=== PATIENT | female | born 1940 | race Caucasian/White ===

== ENCOUNTER 2019-05-16 18:49 | Emergency (ER) | payer MEDICARE, OTHER, SELFPAY ==
[2019-05-16 18:50] VITALS: BP 161/110; PULSE 64; RESP 18; TEMP 37.1; O2SAT 98; BMI 51.3
--- NOTE | 2019-05-16 19:19 | EKG12_ITS ---
Test Reason : DYSRHYTHMIA Blood Pressure : / mmHG Vent. Rate : 055 BPM Atrial Rate : 055 BPM P-R Int : 218 ms QRS Dur : 092 ms QT Int : 440 ms P-R-T Axes : 062 034 091 degrees QTc Int : 420 ms Sinus bradycardia with 1st degree A-V block with Premature atrial complexes Otherwise normal ECG Confirmed by RAYSA BAUGH, DENI ([id number]), editorial assistant LAURA KING ([id number]) on 05/18/2019 1:52:26 PM Referred By: ANNE Confirmed By:DENI TABARES MD
--- NOTE | 2019-05-16 19:20 | CT_ITS ---
STUDY: CT ABDOMEN AND PELVIS WITH CONTRAST REASON FOR EXAM: Female, 78 years old. EPIGASTRIC PAIN, NEW HERNIA. H/O THYROID CANCER. RADIATION DOSAGE (If Supplied By Facility): CTDIvol = ( 18.74 ) mGy, DLP = ( 1272.14 ) mGycm TECHNIQUE: Transaxial images were obtained from the dome of the diaphragm to the symphysis pubis without oral contrast. Oral and amp; IV Gastrografin and amp; 100mL Isovue-300 was administered. Sagittal and coronal images were reconstructed. Individualized dose optimization techniques were used for this CT. COMPARISON: December 22, 2013 CT scan abdomen and pelvis FINDINGS: The visualized lung bases are unremarkable. There is moderate cardiomegaly. Liver is fatty mildly infiltrated. There is non-visualization of the gallbladder, which may be secondary to either contraction or a prior cholecystectomy. Normal spleen. Normal pancreas. There is a mildly thickened appearance of the adrenal glands greater than prior study which may represent hyperplasia. There is mild renal cortical thinning. There is a stable right renal cyst measuring 2.2 x 2.2 cm. There is no evidence of hydronephrosis. Normal left kidney. Normal visualized stomach. There are contrasted loops of bowel that are herniated into a large abdominal wall hernia. There is a stool-filled colon from the cecum to the rectum. There is diverticulosis without diverticulitis. The transverse colon has herniated into the large abdominal wall hernia as well. There is tortuosity. There are mildly distended loops of small bowel within the herniation. There is non-visualization of the appendix. Aorta is partially calcified. Normal inferior vena cava. Normal retroperitoneum. Normal urinary bladder. There is absence of the uterus consistent with a prior hysterectomy. On prior study there was a large abdominal wall hernia approximately at the level of the umbilicus. This only contained fat at that time. Its opening was 5.6 cm and the fat content was approximately 5.6 x 12.8 x 9.7 cm. On today''s study there is much greater herniation. The opening measures approximately 6.5 cm. But now this large hernia contains loops of contrast-filled small bowel with mild distention and stool filled large bowel. This measures 18.2 x 11.3 x 20.2 cm. There are small bowel loops that are just under the skin to what appears to be to the left of the anatomic umbilicus. There is multilevel degenerative change of the lumbar spine with multilevel disc space narrowing vacuum phenomenon multilevel neural foraminal narrowing and [id number] central stenosis. CT/Abdomen/Pelvis WITH Contrast IMPRESSION: Since prior study the moderate sized fatty umbilical hernia is now enlarged to a greater degree now containing fat, stool-filled large bowel and mildly distended contrasted small bowel now measuring up to 18.2 x 11.3 x 20.2 cm. Radiographically findings are suggestive of mild focal ileus of the small bowel. Contrast is extending into the distal small bowel at the time at this time. Stable right renal cyst. Interval mild thickening of the adrenal glands could consider adrenal hyperplasia Diverticulosis no evidence of diverticulitis. Status post hysterectomy. Moderate cardiomegaly. Electronically Signed: Janet Newsome MD at 21:41 EST Tel , Service support ,
[2019-05-16 19:41] LABS: Absolute Lymphocyte Count 1.95 X10^3/uL (0.83-4.51); Basophil# 0.03 X10^3/uL; Basophil% 0.4 % (0-1); Eosinophil# 0.11 X10^3/uL; Eosinophils% 1.6 % (0-5); Hematocrit 42.2 % (37-47); Hemoglobin 13.2 g/dL (12.0-15.0); Lymphocyte # 1.95 X10^3/ul (4.0); Lymphocyte % 29.1 % (19-41); Mean Corp Hgb Conc 31.3 g/dL (32-36); Mean Corpuscular Hgb 30.2 pg (27.0-32.0); Mean Corpuscular Volume 96.6 fL (81-99); Mean Platelet Vol. 9.6 fl (6.2-12.0); Monocyte# 0.56 X10^3/uL; Monocyte% 8.3 % (0-10); NRBC Flagged by Analyzer 0 % (0-5); Neutrophil # 4.01 X10^3/uL (2.7-7.7); Neutrophil % 59.9 % (47-70); Platelet Count 256 K/mm3 (150-450); RBC Distribution Width CV 13.5 % (11.6-14.6); RBC Distribution Width SD 48.1 fl (35.1-43.9); Red Blood Count 4.37 M/mm3 (4.2-5.4); White Blood Count 6.7 K/mm3 (4.4-11.0)
[2019-05-16 20:33] LABS: ALB/GLOB Ratio 0.8 RATIO (0.9-2.4); AST(SGOT) 24 U/L (15-37); Alanine Aminotransfer ALT/SGPT 22 U/L (13-56); Albumin, Serum 3.5 g/dL (3.2-5.0); Alkaline Phosphatase 89 U/L (45-117); Anion Gap 6 (5-15); BUN 29 mg/dL (7-18); BUN/Creat Ratio 22.3 RATIO (10-20); Calcium,Total 8.6 mg/dL (8.5-10.1); Chloride 107 mmol/L (98-107); EST Glomerular Filtration Rate 42 mL/min (>60); Est Glom Filt Rate - Afr Amer 51 mL/min (>60); Estimated Creatinine Clearance 32.31 ml/min; Globulin 4.4 g/dL (2.2-4.2); Glucose 86 mg/dL (74-106); Potassium 4.7 mmol/L (3.5-5.1); Protein, Total 7.9 g/dL (6.4-8.2); Sodium Level 139 mmol/L (136-145)
--- NOTE | 2019-05-16 21:05 | RAD_ITS ---
STUDY: X-RAY CHEST REASON FOR EXAM: Female, 78 years old. Shortness of breath TECHNIQUE: PA and lateral views of the chest. COMPARISON: 09/20/2014 chest x-ray FINDINGS: Position markings are mildly prominent. The lungs are similar to prior study. There is no demonstrated pleural abnormality. There is mild cardiac enlargement. Normal mediastinum and mirian. Normal visualized pulmonary arteries. Normal visualized aortic arch and descending thoracic aorta. There are diffuse degenerative changes of the visualized thoracic spine. Normal visualized ribs, clavicles, and shoulders. There is no demonstrated abnormality of the visualized soft tissue structures of the upper abdomen. RAD/Chest PA and Lateral IMPRESSION: Degenerative changes, as described above. No demonstrated acute cardiopulmonary process. Electronically Signed: Janet Newsome MD at 21:25 EST Tel , Service support ,
[2019-05-16 22:14] LABS: Bacteria 0 SEEN /hpf (None Seen); Mucous, Urine 0 SEEN /hpf (<or=2+); Red Blood Cells-Urine 0 SEEN /hpf (0-5); White Blood Cells 0 SEEN /hpf (0-5)
--- NOTE | 2019-05-16 22:23 | ED.RN ---
pt back in [place] with first degree.
[2019-05-16 22:24] VITALS: BP 183/83; PULSE 57; RESP 18
[2019-05-16 22:25] LABS: Color, Urine Yellow (Yellow); Glucose, Dipstick Normal (Normal); Ketone-Dipstick Negative (Negative); Leukocyte Esterase-Dipstick Negative /ul (Negative); Nitrite-Dipstick Negative (Negative); Occult Blood-Urine Negative /ul (Negative); Protein-Dipstick Negative (Negative); Urine Bilirubin Dipstick Negative (Negative); Urine Clarity Clear (Clear); Urine Urobilinogen Normal (Normal)
[2019-05-16 22:31] LABS: Squamous Epithelial Cells - UA 0-5 SEEN /hpf (5-10)
--- NOTE | 2019-05-16 22:36 | CM.ED ---
Social Work Completed palliative care screening tool. Patient meeting criteria. Meeting with patient and patient family in room. Broached topic of palliative care, patient voicing understanding to this but did become upset when patient saw the words hospice on brochure for palliative care, patient stating I reject that. This case management social worker attempting to educate patient further on the difference between hospice and palliative care, patient declining to listen to this case management social worker any further. Patient family stating to believe patient would benefit from palliative care services. Patient family keeping brochure. Updated medical team. Macho Sewell MSW, JAYNA
--- NOTE | 2019-05-16 22:55 | ED.DCSUM_ITS ---
- ER Visit Summary Date of Service: 05/16/19 Chief Complaint: Shortness of breath History of Present Illness: The patient is a 78 F who presents with shortness of breath that has been getting worse since yesterday. Patient states her breathing is worse with exertion and with laying flat. Patient states she also has pain in her lower abdomen there is worse with movement. Patient denies any chest pain. Patient denies any fevers or chills. Patient denies any sore throat or rhinorrhea. Patient denies any cough. Patient describes her lower abdominal pain as aching. Patient has a history of thyroid cancer and has had a thyroidectomy. Patient has been noncompliant with her medications. Physical Examination: Vital signs are stable except for an elevated blood pressure of 161/110. Patient is afebrile. Patient is in no acute distress. Oral mucosa is pink and moist. Neck is supple. Trachea is midline. There is no JVD. Heart was regular rate and rhythm. Lungs are somewhat diminished bilaterally. There is good respiratory effort noted. Abdomen is soft. Bowel sounds are normal. There is mild lower abdominal tenderness. There is no rebound or guarding noted. Cranial nerves II through XII are intact. There are no focal motor or sensory deficits noted. Extremities are intact. There is 2+ edema of the lower extremities bilaterally. Test Results: PA and lateral chest x-ray was obtained. There is no acute cardiopulmonary process. CT scan of the abdomen and pelvis was obtained. There is an umbilical hernia but there is no obstruction. There is a mild focal ileus of the small bowel. There is no evidence of obstruction. CBC was normal. Comprehensive metabolic profile was essentially within normal limits. Urinalysis does not show any evidence of urinary tract infection. TSH was elevated at 130. Emergency Department Course and Treatment: Patient was feeling better on reevaluation. Patient's blood pressure increased to 210 systolic. Patient was given a dose of labetalol here. Patient was given a prescription for her Synthroid. Patient was instructed to follow-up with her primary care physician in 3 to 5 days. Patient states she wants to follow-up with Dr. Ramirez. Patient was given his information as well. Patient and family understood and were agreeable with the plan. All questions were answered. Disposition: Discharge home Impression: 1. Hypothyroidism 2. Hypertension 3. Dyspnea 4. Abdominal pain This note was generated with iFrat Warsation software. It may contain incorrect words, spelling, and punctuation that were not noted in review of the chart prior to signing ED Disposition - Plan for ED Patient: Disposition: Home or Assisted Living Diagnosis: Hypothyroidism, Hypertension, Dyspnea, Abdominal pain, Umbilical hernia, Hypothyroidism associated with surgical procedure, Morbid obesity Instructions: HYPERTENSION, Established, Hypothyroidism Prescriptions: Metoprolol Tartrate [Lopressor] 50 mg PO DAILY #30 tab Prescription Printed Levothyroxine Sodium [Synthroid] 112 mcg PO DAILY #30 tab Prescription Printed Referrals: Flores Boles DO [Primary Care Provider] - 3-5 Days Tico Ramirez DO [NON-STAFF] - 3-5 Days
[2019-05-16] MEDS: cloNIDine HCl 0.2 MG Tablet PO (23:42)
[2019-05-16 23:47] VITALS: BP 198/72; PULSE 85; RESP 18; O2SAT 96
--- NOTE | 2019-05-16 23:48 | ED.RN ---
WHEN PT REFUSED TO TAKE THE CLONIDINE PILL HERE AND STATED SHE WOULD TAKE IT AT HOME. ADVISED PT THAT SHE IS A RISK FOR STROKE AND HEART ATTACK BECAUSE HER BP IS TOO HIGH. PT STATED SHE HAS A BP MACHINE AT HOME AND SHE WILL TAKE IT FIRST AND THEN TAKE THE PILL.DAUGHTER AT THE BEDSIDE AND ATTEMPTED TO TALK HER IN TO TAKING PILL NOW. AWARE. PT ALSO REFUSED WHEEL CHAIR.
== END 2019-05-16 23:54 | disposition home or self-care (01) ==
PROVIDERS: Emergency Provider Emergency Medicine; PCP Internal Medicine
DX: R06.09 Other forms of dyspnea (principal); R10.30 Lower abdominal pain, unspecified; E03.9 Hypothyroidism, unspecified; I10 Essential (primary) hypertension; K42.9 Umbilical hernia without obstruction or gangrene; Z85.850 Personal history of malignant neoplasm of thyroid; Z91.14 Patient's other noncompliance with medication regimen
CPT/HCPCS: 71046; 74177; 80053; 81001; 84443; 84484; 85025; 93005; 99285; Q9967; A4216

== ENCOUNTER 2022-05-14 15:38 | Inpatient (IN) | payer MEDICARE, OTHER, SELFPAY ==
[2022-05-14] VITALS (15 sets, daily range): BP systolic 124–181; BP diastolic 86–153; PULSE 86–129; RESP 12–31; TEMP 36.5–37.3; O2SAT 97–99; BMI 50.8; BMI 45.9
--- NOTE | 2022-05-14 15:58 | EKG12_ITS ---
Test Reason : AFIB Blood Pressure : / mmHG Vent. Rate : 105 BPM Atrial Rate : 000 BPM P-R Int : 000 ms QRS Dur : 088 ms QT Int : 356 ms P-R-T Axes : 000 026 099 degrees QTc Int : 470 ms Atrial fibrillation with rapid ventricular response Nonspecific T wave abnormality Abnormal ECG Confirmed by RAYSA BAUGH, DENI ([id number]), video tape editor LAURA KING ([id number]) on 05/16/2022 12:37:56 PM Referred By: Confirmed By:DENI TABARES MD
--- NOTE | 2022-05-14 16:00 | VDLE_ITS ---
Reason For Study: Swelling RIGHT LEFT GSV is normal. GSV is normal. CFV is compressible, spontaneous, phasic, CFV is compressible, spontaneous, phasic, competent and demonstrates normal competent, and demonstrates normal augmentation. augmentation. FV is compressible, spontaneous, phasic, FV is compressible, spontaneous, phasic, competent and demonstrates normal competent and demonstrates normal augmentation. augmentation. FV mid-distal visualized with color only, FV mid-distal visualized with color only, appear patent. Patient unbale to tolerate appear patent. Patient unbale to tolerate comperssion. comperssion. POP V is compressible, spontaneous, phasic, POP V is compressible, spontaneous, phasic, competent and demonstrates normal competent and demonstrates normal augmentation. augmentation. T/P Trunk is compressible. T/P Trunk is compressible. PTV is compressible. PTV is compressible. RT PerV is compressible. LT PerV is compressible. Procedure This is a venous duplex using B-mode, color flow and spectral Doppler. Exam performed portable in ED. Technically difficult study due to pt body habitus and inability to tolerate compressions. A preliminary report was called and/or faxed to ED RN. VL/Venous Duplex US - Hnuter Extrem Interpretation Summary No evidence for acute deep venous thrombosis bilateral lower extremities with p atent and compressible bilateral great saphenous veins. Technically difficult examination with patient inability to tolerate compression at the femoral vein and difficulty with imagi ng secondary to body habitus. Ordering Physician: Zay Hooks Referring Physician: Flores Boles M.D. Performed By: Chayito Glover RVT
--- NOTE | 2022-05-14 16:03 | ED.VIS.LOWEX ---
HPI History of Present Illness Chief Complaint: Edema Informant: patient Narrative Narrative: This patient comes in complaining that both of her legs are swollen. She thinks they have gotten red just over the last day. But they have been swollen for a couple months. She states her legs always had a little bit of swelling but not nearly what they have now. She put on a pair of boots that she is worn many times before. She did this 2 months ago for 1 day. She states ever since then her legs have been more swollen. Sometimes they hurt a bit but pain is not the biggest issue. She denies fevers chills nausea or vomiting. Patient also states that she has not seen a physician in over 3 years. She used to be on 19 different medicines. We know that some of those were for blood pressure and thyroid disease. She was never on anticoagulation. She denies diabetes. But she does not know what all her illnesses were nor her medications. She states she saw another hospital a few weeks ago but she does not remember what that was for. Patient also states that she has been getting weaker and weaker. She states she used to walk without any assistance. Then she started using a cane intermittently then continuously. Then she switched to a walker. She now feels she needs a walker with wheels or help. She states she can get enough energy to go into the kitchen but she normally does not have the energy to make any food when she gets there. Her daughter brought her in because her mother is just no longer really functional at home and she realizes that she needs help and finally convinced her mother to get help. We do notice that she appears to be in atrial fibrillation on the monitor. She states she thinks she has been in this before but denies anticoagulation, cardioversion, stents or bypass surgery. She did have a heart catheterization years ago but no treatment came from that. [facility] Medical History Atrial fibrillation Hypertension Hypothyroidism Home Medications NK 05/14/22 [History Last Taken Unknown] Allergy/AdvReac Type Severity Reaction Status Date / Time celecoxib [From Celebrex] AdvReac Other Verified 05/14/22 15:45 morphine AdvReac Vomiting Verified 05/14/22 15:45 Social History Smoking Status: Former smoker ROS ROS ED Constitutional Constitutional ED: Denies chills or fever(s) Eyes Eyes: Denies change in vision ENT ENT ED: Denies rhinorrhea or sore throat Cardiovascular Cardiovascular: Reports racing heartbeat; Denies chest pain Respiratory/Chest Respiratory/Chest: Denies cough or dyspnea Gastrointestinal Gastrointestinal: Denies abdominal pain, diarrhea, nausea or vomiting Genitourinary Genitourinary ED: Denies dysuria Musculoskeletal Musculoskeletal: Reports other Details: Swelling of bilateral lower extremities. ; Denies myalgias Integumentary Reports rash and other Details: Bilateral lower extremities see history of present illness. Neurologic Neurologic: Reports weakness and other Details: Generalized but no focal weakness Endocrine Endocrinology: Denies polydipsia or polyuria Hematologic/Lymphatic Hematologic/Lymphatic: Denies easy bleeding or easy bruising Allergic/Immunologic Allergic/Immunologic ED: Denies urticaria EXAM Physical Exam Narrative Exam Narrative: That Ai is sitting calmly and quietly in bed. She is in no acute distress. She is nontoxic. HEENT: Mucous membranes are reasonably moist. No facial trauma. Neck shows no JVD. Lungs are actually clear. Breaths. Heart is irregular and tachycardic at about 115. Appears to be atrial fibrillation on the monitor. Abdomen is obese but nontender. She does have some lower her midline hernias and umbilical area hernias but these are evidently chronic. They are not tender and they easily reduce. Extremities do show signs of prior bilateral total knee replacements. She also has a fair amount of edema both lower extremities in the lower third of both of her legs do have some erythema warmth and some skin breakdown. No weeping but there is a start of a bit of an odor. Skin shows erythema of the legs as above. No other generalized rash. Neurologic: No focal deficit. She is not the best informant for details of her history but does not appear to be confused. Const Vital Signs: 05/14/22 15:39 05/14/22 15:51 05/14/22 16:00 Temperature 99.1 F 99.1 F Temperature Source Oral Oral Pulse Rate 122 H 129 H 109 H Respiratory Rate 18 31 H Blood Pressure 157/98 H 164/88 H Blood Pressure Mean 117 106 Pulse Ox 98 98 Oxygen Delivery Method Room Air 05/14/22 17:24 05/14/22 18:16 02/22/23 18:31 Temperature 98.1 F 98.1 F Temperature Source Oral Oral Pulse Rate 123 H 117 H 122 H Respiratory Rate 22 H 28 H 24 H Blood Pressure 181/153 H 148/109 H 151/116 H Blood Pressure Mean 163 122 124 Pulse Ox 98 98 98 Oxygen Delivery Method Room Air MDM MDM MDM Narrative Medical decision making narrative: My independent interpretation the patient's single view chest x-ray showed what looked like borderline cardiomegaly on AP film. No infiltrate. Final reading showed no acute issue. Blood work showed mild anemia but white count was normal. Electrolytes showed mild elevation in creatinine 1.3 but it has been to that area when looking at prior labs. Lactic acid was normal. Liver function tests were normal. TSH was high but it was higher on the last check. BNP was just slightly elevated at 186. Urine did not show significant signs of infection. There were a few white cells. I will send this for culture. Patient has multiple issues going on. She has atrial fibrillation with a rapid ventricular rate. She will go down as low as 105. I am going to give her a small dose of metoprolol. I do not know when she had started going into atrial fibrillation. It could have been anywhere in the last few years. She also has signs of edema pain and now erythema in the legs consistent with cellulitis. We will treat her with antibiotics. We attempted to get the patient up and walk. She was far too weak to do this. After extensive discussion with her she does admit to coming in the hospital. She also admits that she may need to go to a senior care for a while. I have hospitalist on page regarding admission. I would discussed the case directly with hospitalist including blood work x-rays and history. Lab Data Attestation: I reviewed the patient's lab results. Labs: Laboratory Results - last 24 hr 05/14/22 05/14/22 05/14/22 16:06 16:06 16:06 WBC 7.6 RBC 4.13 L Hgb 11.5 L Hct 38.2 MCV 92.5 MCH 27.8 MCHC 30.1 L RDW Std Deviation 50.3 H RDW Coeff of Leslie 14.6 Plt Count 340 MPV 9.2 Immature Gran % (Auto) 1.300 H Neut % (Auto) 71.1 H Lymph % (Auto) 14.6 L Hutchinson % (Auto) 11.5 H Eos % (Auto) 1.1 Baso % (Auto) 0.4 Absolute Neuts (auto) 5.4 Absolute Lymphs (auto) 1.11 Nucleated RBC % 0 Sodium 139 Potassium 4.6 Chloride 105 Carbon Dioxide 29.0 Anion Gap 5 BUN 30 H Creatinine 1.30 H Estim Creat Clear Calc 30.70 Est GFR (MDRD) Af Amer 50 L Est GFR (MDRD) Non-Af 42 L BUN/Creatinine Ratio 23.1 H Glucose 105 Lactic Acid 0.8 Calcium 8.9 Magnesium 2.2 Total Bilirubin 0.60 AST 18 ALT 25 Alkaline Phosphatase 87 Troponin I High Sens 21 B-Natriuretic Peptide Total Protein 7.0 Albumin 3.1 L Globulin 3.9 Albumin/Globulin Ratio 0.8 L TSH 47.90 H Urine Color Urine Clarity Urine pH Ur Specific [place] Urine Protein Urine Glucose (UA) Urine Ketones Urine Occult Blood Urine Nitrite Urine Bilirubin Urine Urobilinogen Ur Leukocyte Esterase Urine RBC Urine WBC Ur Squamous Epith Cells Urine Bacteria Urine Mucus 05/14/22 05/14/22 16:06 17:27 WBC RBC Hgb Hct MCV MCH MCHC RDW Std Deviation RDW Coeff of Leslie Plt Count MPV Immature Gran % (Auto) Neut % (Auto) Lymph % (Auto) [place] % (Auto) Eos % (Auto) Baso % (Auto) Absolute Neuts (auto) Absolute Lymphs (auto) Nucleated RBC % Sodium Potassium Chloride Carbon Dioxide Anion Gap BUN Creatinine Estim Creat Clear Calc Est GFR (MDRD) Af Amer Est GFR (MDRD) Non-Af BUN/Creatinine Ratio Glucose Lactic Acid Calcium Magnesium Total Bilirubin AST ALT Alkaline Phosphatase Troponin I High Sens B-Natriuretic Peptide 186.8 H Total Protein Albumin Globulin Albumin/Globulin Ratio TSH Urine Color Yellow Urine Clarity Sl. Cloudy Urine pH 6.0 Ur Specific [place] 1.010 Urine Protein 30 H Urine Glucose (UA) Normal Urine Ketones Negative Urine Occult Blood 25 H Urine Nitrite Negative Urine Bilirubin Negative Urine Urobilinogen Normal Ur Leukocyte Esterase 100 H Urine RBC 0-5 SEEN Urine WBC 5-10 SEEN Ur Squamous Epith Cells 0-5 SEEN Urine Bacteria 1+ Urine Mucus 0 SEEN Radiography Diagnostic Testing: Clinical Impression(s) from Imaging Studies Venous Doppler Study 05/14/22 16:00 Interpretation Summary No evidence for acute deep venous thrombosis bilateral lower extremities with patent and compressible bilateral great saphenous veins. Technically difficult examination with patient inability to tolerate compression at the femoral vein and difficulty with imaging secondary to body habitus. Ordering Physician: Zay Hooks Referring Physician: Flores Boles M.D. Performed By: Chayito Glover RVT Chest X-Ray 05/14/22 16:20 IMPRESSION: COPD and ASHD. No acute cardiopulmonary pathology. Electronically Signed: Suresh Carl MD at 16:37 EST Reading Location ID and State: [address] [place] [address] , Service support , EKG Initial EKG: Comments: My independent interpretation of the patient's EKG done for tachycardia and atrial fibrillation does show atrial fibrillation with rapid overall rate at 105. There is no ventricular ectopy on the EKG although I have seen some on the monitor. No acute ST elevation or depression. QRS duration is normal. QTc is a little long at 470 ms. Discharge Plan Triage Chief Complaint: Edema ED Provider: Zay Hooks Dx/Rx/DC Orders Clinical Impression: Cellulitis of lower extremity, Atrial fibrillation with RVR, Hypothyroid, Creatinine elevation Prescriptions: No Action NK Primary Care Provider: Flores Boles Referrals: Flores Boles DO [Primary Care Provider] - Disposition Disposition: Acute Care Hospital [facility]
--- NOTE | 2022-05-14 16:20 | RAD_ITS ---
STUDY: X-RAY CHEST REASON FOR EXAM: Female, 81 years old. Cardiomegaly TECHNIQUE: AP portable COMPARISON: May 16, 2019 FINDINGS: Lungs are hyperinflated but clear.. There is no demonstrated pleural abnormality. Heart is enlarged.. Normal mediastinum and mirian. Normal visualized pulmonary arteries. Mildly calcified aortic arch and descending thoracic aorta. Dorsal spine and shoulders demonstrate degenerative change. Normal visualized ribs, and clavicles.. There is no demonstrated abnormality of the visualized soft tissue structures of the upper abdomen. RAD/Chest 1 View (Portable) IMPRESSION: COPD and ASHD. No acute cardiopulmonary pathology. Electronically Signed: Suresh Carl MD at 16:37 EST ,
[2022-05-14 16:39] LABS: Absolute Lymphocyte Count 1.11 X10^3/uL (0.83-4.51); Absolute Neutrophil Count 5.4 X10^3/uL (2.0-7.7); Basophil# 0.03 X10^3/uL; Basophil% 0.4 % (0-1); Eosinophil# 0.08 X10^3/uL; Eosinophils% 1.1 % (0-5); Hematocrit 38.2 % (37-47); Hemoglobin 11.5 g/dL (12.0-15.0); Lymphocyte # 1.11 X10^3/ul (0.83-4.51); Lymphocyte % 14.6 % (19-41); Mean Corp Hgb Conc 30.1 g/dL (32-36); Mean Corpuscular Hgb 27.8 pg (27.0-32.0); Mean Corpuscular Volume 92.5 fL (81-99); Mean Platelet Vol. 9.2 fl (6.2-12.0); Monocyte# 0.87 X10^3/uL; Monocyte% 11.5 % (0-10); NRBC Flagged by Analyzer 0 % (0-5); Neutrophil % 71.1 % (47-70); Platelet Count 340 K/mm3 (150-450); RBC Distribution Width CV 14.6 % (11.6-14.6); RBC Distribution Width SD 50.3 fl (35.1-43.9); Red Blood Count 4.13 M/mm3 (4.2-5.4); White Blood Count 7.6 K/mm3 (4.4-11.0)
[2022-05-14 16:58] LABS: Lactic Acid 0.8 mmol/L (0.4-1.9)
[2022-05-14 17:04] LABS: ALB/GLOB Ratio 0.8 RATIO (0.9-2.4); AST(SGOT) 18 U/L (15-37); Alanine Aminotransfer ALT/SGPT 25 U/L (13-56); Albumin, Serum 3.1 g/dL (3.2-5.0); Alkaline Phosphatase 87 U/L (45-117); Anion Gap 5 (5-15); BUN 30 mg/dL (7-18); BUN/Creat Ratio 23.1 RATIO (10-20); Calcium,Total 8.9 mg/dL (8.5-10.1); Chloride 105 mmol/L (98-107); EST Glomerular Filtration Rate 42 mL/min (>60); Est Glom Filt Rate - Afr Amer 50 mL/min (>60); Globulin 3.9 g/dL (2.2-4.2); Glucose 105 mg/dL (74-106); Magnesium 2.2 mg/dL (1.6-2.6); Potassium 4.6 mmol/L (3.5-5.1); Sodium Level 139 mmol/L (136-145); Troponin-I HS 21 pg/mL (3.0-54.0)
[2022-05-14 17:33] LABS: BNP,B-Type NATRIURETIC PEPTIDE 186.8 pg/mL (0-100)
[2022-05-14 17:34] LABS: Mucous, Urine 0 SEEN /hpf (<or=2+)
[2022-05-14 17:55] LABS: Color, Urine Yellow (Yellow); Glucose, Dipstick Normal (Normal); Ketone-Dipstick Negative (Negative); Leukocyte Esterase-Dipstick 100 /ul (Negative); Nitrite-Dipstick Negative (Negative); Occult Blood-Urine 25 /ul (Negative); Protein-Dipstick 30 mg/dl (Negative); Urine Bilirubin Dipstick Negative (Negative); Urine Clarity Sl. Cloudy (Clear); Urine Urobilinogen Normal (Normal)
[2022-05-14 18:08] LABS: Bacteria 1+ /hpf (None Seen); Red Blood Cells-Urine 0-5 SEEN /hpf (0-5); Squamous Epithelial Cells - UA 0-5 SEEN /hpf (5-10); White Blood Cells 5-10 SEEN /hpf (0-5)
[2022-05-14] MEDS: Metoprolol Tartrate 5 MG/5 ML Vial IV (19:46)
--- NOTE | 2022-05-14 19:48 | ED.RN ---
pT REFUSING LOPRESSOR, LOTS OF EDUCATION PROVIDED. PT REFUSING THERES NOTHING WRONG WITH ME. RAHAT SAVED ME LOTS OF EDUCATION PROVIDED AGAIN. PT AGREEABLE IF SHE COULD READ BIBLE TO NURSE. MEDS THROUGH IV WITHOUT COMPLICATIONS.
--- NOTE | 2022-05-14 20:51 | PCM.HP.STD ---
HPI - General General Date of Admission: 05/14/22 Date of Service: 05/14/22 Chief Complaint: BL LE Edema, redness, pain. HPI Narrative The patient is an 81 y/o F w/ PMHx: CKD stage III unclear sutbype, Chronic normocytic anemia, Morbid Obesity, Diastolic CHF, HTN, HLD, Hypothyroidism s/p resection secondary to Thyroid CA Hx, Asthma who presents to the [facility] ED on 05/14/22 with history of primarily complaint of bilateral lower extremity edema as well as mild redness which she reports has been only over the last day although they have been swollen for months per her report but not as marked as they are now and she very specifically blames them on a pair of boots that she recently wore with no recent fever, chills, nausea or emesis. Patient has had some stasis blisters and drainage from them but denies any purulent smell. Patient is not extremely active and she does admit that she has been off all of her medications for nearly 3 years. She is extremely reticent to restarting any medications and a thorough discussion was undertaken and it was encouraged strongly to consider at least her vital medications but again she is not sure that she will take these beyond her current acute presentation. She denies any palpitations, chest discomfort or dyspnea. She is unsure if she has had atrial fibrillation prior. She does state that her lower extremities do hurt more so with activities and with any palpation of the extremities, rates a dull aching throbbing but more sharp with palpitation. Currently discomfort 3-4 out of 10 in severity work-up in the ED included initially T99.1, heart rate 122 with most recent repeat 112, BP initially 157/98 with most recent repeat 148/97, respiratory rate initially 22-31 with most recent repeat 12, 99% on room air, CBC with WC 7.6, hemoglobin 11.5, MCV 92.5, platelet 340 with increased immature granulocyte, CMP with BUN/creatinine 30/1.30, lactic acid 0.8, magnesium 2.2, hepatic profile unremarkable, BNP 186.8, TSH 47.90, urinalysis with cloudy appearing urine, specific remedy 1.010, protein 30, occult blood 25, negative nitrite, leukocyte Estrace 100, urine WBCs 5-10 with 1+ urine bacteria noted, urine culture pending per ED, chest x-ray with COPD and ASHD with no acute cardiopulmonary findings otherwise, duplex ultrasound of the bilateral lower extremities with no evidence of acute DVTs with patent and compressible bilateral vessels although difficult as patient was unable to tolerate compression of the femoral vein and difficulty given habitus EKG with atrial for with mild RVR. In the ED patient ministered Zofran 4 mg IV x1, metoprolol 5 mg IV x1, fentanyl 25 mcg IV x1 and Unasyn 3 g IV x1. [facility] Medical History (Updated 05/14/22 @ 19:[address] Vivian Armstrong MD) Asthma Atrial fibrillation Chronic anemia CKD (chronic kidney disease), stage III Hypertension Hypothyroidism Hypothyroidism associated with surgical procedure Morbid obesity Thyroid cancer Venous insufficiency of both lower extremities Home Medications NK 05/14/22 [History Last Taken Unknown] Allergy/AdvReac Type Severity Reaction Status Date / Time celecoxib [From Celebrex] AdvReac Other Verified 05/14/22 15:45 morphine AdvReac Vomiting Verified 05/14/22 15:45 Family History (Updated 05/14/22 @ 20:[address] Vivian Armstrong MD) Mother Diabetes Hypertension Father Heart disease Surgical History (Updated 05/14/22 @ 20:[address] Vivian Armstrong MD) H/O total hysterectomy with bilateral salpingo-oophorectomy (BSO) History of thyroidectomy Hx of cholecystectomy Hx of total knee arthroplasty S/P appendectomy Status post insertion of dialysis catheter Social History (Updated 05/14/22 @ 20:[address] Vivian Armstrong MD) household members: none Smoking Status: Former smoker how long ago did patient quit smoking: Smoked age [age], smoked 1-1.5 ppd until quit. alcohol intake: current alcohol intake frequency: holidays/special occasions only substance use type: does not use ROS ROS Narrative Admission Review of Systems: CONSTITUTIONAL: No weight loss, fever, chills, + weakness or fatigue. HEENT: Eyes: No visual loss, blurred vision, double vision or yellow sclerae. Ears, Nose, Throat: No hearing loss, sneezing, congestion, runny nose or sore throat. SKIN: + Notable bilateral lower extremity stasis skin changes, stasis ulcers. CARDIOVASCULAR: + Bilateral lower extremity edema, no chest pain, chest pressure or chest discomfort, palpitations, orthopnea, syncopal events. RESPIRATORY: No shortness of breath, cough or sputum, wheezing, hemoptysis. GASTROINTESTINAL: No anorexia, nausea, vomiting or diarrhea, abdominal pain, melena, BRBPR. GENITOURINARY: No dysuria, frequency, urgency or retention. NEUROLOGICAL: No headache, dizziness, syncope, paralysis, ataxia, numbness or tingling in the extremities, focal weakness, change in bowel or bladder control, seizure. MUSCULOSKELETAL: + muscle, back pain, joint pain or stiffness. HEMATOLOGIC: + anemia, bleeding or bruising. LYMPHATICS: No enlarged nodes. No history of splenectomy. PSYCHIATRIC: No history of depression or anxiety. ENDOCRINOLOGIC: No reports of sweating, cold or heat intolerance. No polyuria or polydipsia. ALLERGIES: + history of asthma. Vital Signs Vital Signs Vital Signs: 05/14/22 15:39 05/14/22 15:51 05/14/22 16:00 Temperature 99.1 F 99.1 F Temperature Source Oral Oral Pulse Rate 122 H 129 H 109 H Respiratory Rate 18 31 H Blood Pressure 157/98 H 164/88 H Blood Pressure Mean 117 106 Pulse Ox 98 98 Oxygen Delivery Method Room Air 05/14/22 17:24 05/14/22 18:16 05/14/22 18:31 Temperature 98.1 F 98.1 F Temperature Source Oral Oral Pulse Rate 123 H 117 H 122 H Respiratory Rate 22 H 28 H 24 H Blood Pressure 181/153 H 148/109 H 151/116 H Blood Pressure Mean 163 122 124 Pulse Ox 98 98 98 Oxygen Delivery Method Room Air 05/14/22 19:35 05/14/22 19:50 Temperature Temperature Source Pulse Rate 112 H 95 Respiratory Rate 12 Blood Pressure 148/97 H Blood Pressure Mean 114 Pulse Ox 99 Oxygen Delivery Method Room Air Weight Weight: 315 lb 0.649 oz Body Mass Index (BMI) 50.8 Physical Exam Narrative Physical Examination: General: Awake, alert, oriented x 3 and cooperative, seated upright in the ED bed, very adamant about the cause of her current presentation, still believes that this has nothing to do with taking her self of any of her vital medications, does report lower extremity discomfort at this time. Skin: Normal color, normal turgor, no icterus, no cyanosis except for significant bilateral lower extremity stasis skin changes with stasis ulcers and some serous drainage, no foul odor. HEENT: AT/NC, EOMI, PERRLA, MMM, no carotid bruits or JVD noted however, very thickened neck makes evaluation difficult; . Lungs: Mildly distant breath sounds, greater bases, appropriate effort, no respiratory distress, no rales, ronchi or wheezing. Heart: Currently irregular regular; no gallop, rub audible. Abdomen: Soft, morbidly obese, lower midline hernia present, NTTP, no obvious distention but habitus makes evaluation difficult, normal BS, unable to discern HSM well given morbidly obese habitus. Extremities: No cyanosis, no clubbing, see skin, significant pedal to proximal woo pitting edema with stasis skin changes as noted. Neurological: Patient awake, alert, oriented as noted, cognitive function intact; pupils equally reactive to light and accommodation, cranial nerves II-XII grossly normal, moving all 4 extremities, no focal deficits, strength moderately global decrease secondary to acute complaints Psychiatric: Affect appears occasionally mildly irritable with discussions but calms, no acute evidence of depressive or anxiety feelings. Results Lab / Micro Data Result Diagrams: 05/14/22 16:06 05/14/22 16:06 Labs: Laboratory Results - last 24 hr 05/14/22 16:06: WBC 7.6, RBC 4.13 L, Hgb 11.5 L, Hct 38.2, MCV 92.5, MCH 27.8, MCHC 30.1 L, RDW Std Deviation 50.3 H, RDW Coeff of Leslie 14.6, Plt Count 340, MPV 9.2, Immature Gran % (Auto) 1.300 H, Neut % (Auto) 71.1 H, Lymph % (Auto) 14.6 L, [place] % (Auto) 11.5 H, Eos % (Auto) 1.1, Baso % (Auto) 0.4, Absolute Neuts (auto) 5.4, Absolute Lymphs (auto) 1.11, Nucleated RBC % 0 05/14/22 16:06: Sodium 139, Potassium 4.6, Chloride 105, Carbon Dioxide 29.0, Anion Gap 5, BUN 30 H, Creatinine 1.30 H, Estim Creat Clear Calc 30.70, Est GFR (MDRD) Af Amer 50 L, Est GFR (MDRD) Non-Af 42 L, BUN/Creatinine Ratio 23.1 H, Glucose 105, Calcium 8.9, Magnesium 2.2, Total Bilirubin 0.60, AST 18, ALT 25, Alkaline Phosphatase 87, Troponin I High Sens 21, Total Protein 7.0, Albumin 3.1 L, Globulin 3.9, Albumin/Globulin Ratio 0.8 L, TSH 47.90 H 05/14/22 16:06: Lactic Acid 0.8 05/14/22 16:06: B-Natriuretic Peptide 186.8 H 05/14/22 17:27: Urine Color Yellow, Urine Clarity Sl. Cloudy, Urine pH 6.0, Ur Specific [place] 1.010, Urine Protein 30 H, Urine Glucose (UA) Normal, Urine Ketones Negative, Urine Occult Blood 25 H, Urine Nitrite Negative, Urine Bilirubin Negative, Urine Urobilinogen Normal, Ur Leukocyte Esterase 100 H, Urine RBC 0-5 SEEN, Urine WBC 5-10 SEEN, Ur Squamous Epith Cells 0-5 SEEN, Urine Bacteria 1+, Urine Mucus 0 SEEN Radiology Impression Venous Doppler Study 05/14/22 16:00 Interpretation Summary No evidence for acute deep venous thrombosis bilateral lower extremities with patent and compressible bilateral great saphenous veins. Technically difficult examination with patient inability to tolerate compression at the femoral vein and difficulty with imaging secondary to body habitus. Ordering Physician: Zay Hooks Referring Physician: Flores Boles M.D. Performed By: Chayito Glover RVT Chest X-Ray 05/14/22 16:20 IMPRESSION: COPD and ASHD. No acute cardiopulmonary pathology. Electronically Signed: Suresh Carl MD at 16:37 EST Reading Location ID and State: [facility] / [place] , Service support , Assessment & Plan Assessment/Plan (1) Atrial fibrillation with RVR: PLAN: Plan The patient is an 81 y/o F w/ PMHx: CKD stage III unclear sutbype, Chronic normocytic anemia, Morbid Obesity, Diastolic CHF, HTN, HLD, Hypothyroidism s/p resection secondary to Thyroid CA Hx, Asthma who presents to the [facility] ED on 05/14/22 with history of primarily complaint of bilateral lower extremity edema as well as mild redness which she reports has been only over the last day although they have been swollen for months per her report but not as marked as they are now and she very specifically blames them on a pair of boots that she recently wore with no recent fever, chills, nausea or emesis. #1. New Onset Paroxsymal atrial fibrillation with RVR: EKG in ED w/ atrial fibrillation w/ RVR. Patient administered lopressor 5 mg IV x 1 in ED. Will admit to PCU, maintain on telemetry, obtain cardiac enzyme serial set, magnesium level normal, obtain ECHO, TSH elevated but on no medications with pending FT4/FT3. CHADs scoring appropriate for anticoagulation thus will start eliquis. Will initiate on oral metoprolol and further assess for possible cardizem drip needs if uncontrolled. If difficult to control low threshold to involve cardiology. #2. Bilateral Lower Extremity Redness, drainage/stasis ulcers/blisters, lower suspicion for cellulitis, Suspect primarily Acute on Chronic Venous Stasis given #1 and uncontrolled medical diagnoses: Will place SNUG krishna wraps, elevate BL lower extremities, dose with pulse IV lasix, hold on further abx therapy with pending procalcitonin. If concern arises for infection low threshold to start abx therapy again. #3. History of thyroid cancer status postresection with resulting hypothyroidism with abnormal TSH: TSH upon presentation significantly altered and noted to be 47.90, will obtain free T4 and free T3 levels to further elucidate. Patient currently does not have any evidence of hypothermia, hypotension, hyperventilation or significant mental status changes nor any hyponatremia or hypoglycemia despite having taken herself off of her levothyroxine medications therefore less concern for any severe complications from her hypothyroidism. Will restart regimen at 1.6 mcg/kg/day and adjust further pending response. Had from records been on 137 mcg daily prior. #4. Chronic diastolic CHF: Noted in history, taking no medications but in the past had been up to usage of 90 medications per her report currently declining to restart anything aside from the acute presentation, at this time given #[address] on Eliquis, initiate metoprolol, initiate pulse dose IV Lasix as noted #2, obtain FLP, magnesium level normal 2.2, request echocardiogram given last noted 08/21/2014 with LV systolic function normal, EF 70%, mildly enlarged LA, mild MVI, trivial TVI, transmitral diastolic flow velocity suggestive of diastolic dysfunction. #5. Suspected Chronic Urinary Colonization, lower suspicion Acute UTI: UA upon ED evaluation mildly remarkable, patient denies any dysuria, increased frequency above her baseline nor any suprapubic tenderness nor fever or chills thus again will hold on abx therapy. UCx pending. #6. Normocytic anemia, appears chronic: Admission hemoglobin 11.5, more recently baseline has primarily been 12-13 but labs have been remote and in the past patient has been down in the 11 range, will continue to trend CBC. Fe panel, ferritin, vitamin B12, folic acid levels requested as well as guiac. #7. Chronic Kidney Disease Stage III, unclear: Admission BUN/Cr 30/1.30, baseline renal function primarily 1-1.3, repeat BMP in AM. #8. Hypertension: As noted above will initiate metoprolol, pulse IV Lasix, as needed hydralazine. #9. Hyperlipidemia: We will obtain FLP, patient currently extremely resistant to medications thus will hold on immediate statin addition although given her medical history he would benefit. #10. Morbid Obesity: Weight loss and lifestyle changes encouraged, nutrition consulted. #11. Former tobacco use: Encourage continued tobacco cessation. #12. DVT prophylaxis: SCDs, starting eliquis. #13. CODE status: Patient SHIMON is her daughter who recently left the ED and living will is she reports currently in place. Discussed CODE status at length including difference between FULL code, DNR-CCA and DNR-CC status. Following discussions about the differences in these status, requested Full Code status. Of note lengthy discussions about patient in the ED as she is very reticent any medications including even resumption of her thyroid medication and states specifically that her face has healed her and she is been off these medicines for many years. Advanced Care Planning Face to Face Time: 16 minutes. Admission Evaluation Time spent evaluating chart, patient history, patient evaluation, care planning and discussion with specialists: 77 minutes. Charges/Coding Visit Charges Inpatient E&M: 76676 Init Hosp L3 Procedures Hospitalists Procedures: 19168 Advncd Care Plan 30 Min
--- NOTE | 2022-05-14 22:44 | NURSING ---
pt refusing tele monitors, chair alarm. Provided education about the use of tele monitors and how we need it to monitor her HR and rhythm. Also provided the reason why we need chair alarm to help us know when she tries to get up without help and we can come in and help her. Pt resistive with care, yelling at staff. Will continue to monitor.
--- NOTE | 2022-05-14 23:31 | PCM.HOSP.N ---
Hospitalist Note Patient has been extremely resistant to medications. She has now refused all treatments but is willing to take oral lasix only.
--- NOTE | 2022-05-14 23:39 | ED.RN ---
Pt was admitted onto the floor and admission process began. pt became agitated with this REFRIGERATION UNIT REPAIRER and Charge nurse due to her times 2 assist. when we offered her to use a walker like she does at home we brought one in and Pt began yelling very loud and directed her anger towards this REFRIGERATION UNIT REPAIRER and charge nurse because the walker has wheels and is unsafe, the nurse licensed practical nurse talked to the pt in a very calm manner and stated that we can find other alternatives. pt became very aggitated and called the nurse licensed practical nurse names. pt continuously screaming at this REFRIGERATION UNIT REPAIRER and charge nurse as we calmly state that this is a hospital and we are here to help. pt refusing to allow chair alarm on chair for safety. pt then said inappropriate slures towards charge nurse then later on to This REFRIGERATION UNIT REPAIRER.
[2022-05-14 23:47] LABS: Troponin-I HS 22 pg/mL (3.0-54.0)
[2022-05-14] MEDS: Furosemide 40 MG Tablet PO (23:50)
--- NOTE | 2022-05-14 23:52 | NURSING ---
Pt refused some meds, metoprolol and eliquis. Education provided about meds and also given some reading materials about medications. Pt continue to refused both meds and agreed to take PO lasix. notified. Provided some snacks per pt request.
[2022-05-15] VITALS (9 sets, daily range): BP systolic 108–147; BP diastolic 64–84; PULSE 59–111; RESP 16–20; TEMP 36.6–36.9; O2SAT 95–100; BMI 46.0
--- NOTE | 2022-05-15 00:51 | NURSING ---
This nurse was helping with this new admission and patient asked to get up to use the toilet. I explained to the patient that if we didn't feel safe assisting her out of the bed to the bedside commode that we would have to wait for therapy to evaluate her. Patient states she walks at home without any problem so me and the spiral spring winder assisted patient to the bedside commode. Patient was not steady on her feet when we assisted to bedside commode so I asked if she used a walk at home and she stated yes. The spiral spring winder got a walker and patient refused to use the walker to get back to the bed stated how are you getting me a walker with wheels that is not safe I tried to explain but the patient was not hearing what I was trying to explain to her. The patient started belligerent me calling me out of my name while me and the spiral spring winder was helping her. Patient was yelling and stating that we are not helping her. I asked the patient to not talk to me like that patient resting in recliner because she thought the bed was unsafe. Patient also refused telemetry. This nurse made sure that call light was within reach and communicated with the nurse that was going to be taking care of her.
[2022-05-15 01:27] LABS: Troponin-I HS 21 pg/mL (3.0-54.0)
[2022-05-15] MEDS: Levothyroxine 88 MCG Tablet PO (06:12)
[2022-05-15 06:37] LABS: Absolute Lymphocyte Count 1.03 X10^3/uL (0.83-4.51); Absolute Neutrophil Count 5.5 X10^3/uL (2.0-7.7); Basophil# 0.03 X10^3/uL; Basophil% 0.4 % (0-1); Eosinophil# 0.04 X10^3/uL; Eosinophils% 0.5 % (0-5); Hematocrit 40.9 % (37-47); Hemoglobin 12.8 g/dL (12.0-15.0); Lymphocyte # 1.03 X10^3/ul (0.83-4.51); Lymphocyte % 13.7 % (19-41); Mean Corp Hgb Conc 31.3 g/dL (32-36); Mean Corpuscular Hgb 28.1 pg (27.0-32.0); Mean Corpuscular Volume 89.9 fL (81-99); Mean Platelet Vol. 9.5 fl (6.2-12.0); Monocyte# 0.77 X10^3/uL; Monocyte% 10.3 % (0-10); NRBC Flagged by Analyzer 0 % (0-5); Neutrophil # 5.54 X10^3/uL (2.7-7.7); Neutrophil % 73.9 % (47-70); Platelet Count 343 K/mm3 (150-450); RBC Distribution Width CV 14.6 % (11.6-14.6); RBC Distribution Width SD 48.5 fl (35.1-43.9); Red Blood Count 4.55 M/mm3 (4.2-5.4); White Blood Count 7.5 K/mm3 (4.4-11.0)
[2022-05-15 07:14] LABS: ALB/GLOB Ratio 0.8 RATIO (0.9-2.4); AST(SGOT) 23 U/L (15-37); Alanine Aminotransfer ALT/SGPT 29 U/L (13-56); Albumin, Serum 3.3 g/dL (3.2-5.0); Alkaline Phosphatase 93 U/L (45-117); Anion Gap 6 (5-15); BUN 30 mg/dL (7-18); BUN/Creat Ratio 22.1 RATIO (10-20); Calcium,Total 9.3 mg/dL (8.5-10.1); Chloride 102 mmol/L (98-107); Cholesterol 127 mg/dL (200); Creatinine, Serum 1.36 mg/dL (0.55-1.02); EST Glomerular Filtration Rate 39 mL/min (>60); Est Glom Filt Rate - Afr Amer 48 mL/min (>60); Estimated Creatinine Clearance 30.48 ml/min; Ferritin 91 ng/mL (8-252); Free T3 1.6 pg/mL (2.18-3.98); Globulin 4.1 g/dL (2.2-4.2); Glucose 103 mg/dL (74-106); High Density Lipoprotein 42 mg/dL; Iron 30 ug/dL (50-170); Iron Binding Capacity,Total 380 ug/dL (250-450); PERCENT IRON SATURATION 7.9 % (15.0-55.0); Potassium 4.4 mmol/L (3.5-5.1); Protein, Total 7.4 g/dL (6.4-8.2); Sodium Level 138 mmol/L (136-145); T4 Free Direct 0.61 ng/dL (0.76-1.46); Triglycerides 76 mg/dL; Very Low Density Lipoprotein 15 mg/dL (5-40)
[2022-05-15 08:15] LABS: Vitamin B12 910 pg/mL (211-911)
[2022-05-15] MEDS: Aspirin 81 MG TAB.CHEW PO (11:30)
[2022-05-15] MEDS: Furosemide 40 MG Tablet PO ×2 (11:30→22:25)
--- NOTE | 2022-05-15 11:50 | CASEMGMT ---
MARCOS DUMONT Face to Face with patient for initial transition planning/care coordination assessment. RN CM introduced self and role at [facility]. Patient sitting in chair, alert and oriented. Patient willing to participate in assessment and is able to answer all questions appropriately. Care providers, pharmacy, and demographics verified. Patient wishes to possible SNF pending progress with therapy. Patient states he has no further needs or concerns at this time. SW updated regarding possible SNF placement. CM to follow for discharge planning needs that may arise. PCP: No PCP, patient is working on getting established with PCP affiliated with Dr Boles Specialists: none Preferred Pharmacy: [facility] Insurance: Melba CALVO Prescription Benefit: yes Living Will/HPOA: yes, daughter Karen Schrader LNOK: daughter Living Arrangements: Patient lives alone in a first floor apartment with 7 steps to enter. Patient states she was independent at home but having more difficulty at home. Transportation: daughter DME/HHC: Patient has shower chair, raised toilet, cane, walker, and grab bars. Patient has had [facility] in the past. Patient has been to [facility] in the past. Disposition Plan: Possible SNF pending progress with therapy. Chayito PROCTOR, RN, CM
--- NOTE | 2022-05-15 12:18 | NURSING ---
Pt still refusing telemetry, echo, and eliquis. Pt educated on the importance of wearing the chief technician, having the echo completed, and about the importance of taking eliquis. aware.
--- NOTE | 2022-05-15 14:22 | CASEMGMT ---
Therapy is recommending patient go somewhere short term for rehab. SW met with patient and introduced self as well as role at [facility]. SW explained recommendations and patient agreed. SW provided patient with a list of?[facility] facility providers including quality and resource use data and consistent with patient?s preferred geographic region, medical needs, and insurance network were provided from the [employer] Guide. SW explained to patient Medicare [facility] facility benefits. SW told patient she will need to pick at least 3 facilities she would be okay with and SW will take care of calling facilities. SW will check back. Plan: [facility] facility pending patient's choices and accepting facility. Guerita DORANTES
--- NOTE | 2022-05-15 14:31 | PN.HOSP_ITS ---
Reason for Visit Reason for Visit: Diagnoses Unspecified atrial fibrillation (05/14/22) Subjective Subjective Patient seen and examined. She had no complaints and says she did not know why she was having a whole lot of test done as she only came to the hospital because of a rash on her legs. She states that she thinks something was done with her boots that she wants her boots checked out see what caused the rash. She denies any chest pain, palpitations, dizziness, nausea or vomiting or diarrhea. Review of systems otherwise negative. Objective Data Objective Data Vital Signs: Vital Signs Temp Pulse Resp BP Pulse Ox O2 Del Method 97.8 F 59 L 16 140/64 H 100 Room Air 05/15/22 11:30 05/15/22 11:31 05/15/22 11:30 05/15/22 11:31 05/15/22 11:30 05/15/22 11:30 Oxygen Delivery Method Room Air Weight: 293 lb 14.019 oz Body Mass Index (BMI) 46.0 Intake & Output: Intake and Output for Last 24 Hours 05/13/22 05/14/22 05/15/22 23:59 23:59 23:59 Intake Total 112 / 112 Balance 112 / 112 Lab / Micro Data Result Diagrams: 05/15/22 06:02 05/15/22 06:02 Labs: Laboratory Results - last 24 hr 05/14/22 16:06: WBC 7.6, RBC 4.13 L, Hgb 11.5 L, Hct 38.2, MCV 92.5, MCH 27.8, MCHC 30.1 L, RDW Std Deviation 50.3 H, RDW Coeff of Leslie 14.6, Plt Count 340, MPV 9.2, Immature Gran % (Auto) 1.300 H, Neut % (Auto) 71.1 H, Lymph % (Auto) 14.6 L , [place] % (Auto) 11.5 H, Eos % (Auto) 1.1, Baso % (Auto) 0.4, Absolute Neuts (auto) 5.4, Absolute Lymphs (auto) 1.11, Nucleated RBC % 0 05/14/22 16:06: Sodium 139, Potassium 4.6, Chloride 105, Carbon Dioxide 29.0, Anion Gap 5, BUN 30 H, Creatinine 1.30 H, Estim Creat Clear Calc 30.70, Est GFR (MDRD) Af Amer 50 L, Est GFR (MDRD) Non-Af 42 L, BUN/Creatinine Ratio 23.1 H, Glucose 105, Calcium 8.9, Magnesium 2.2, Total Bilirubin 0.60, AST 18, ALT 25, Alkaline Phosphatase 87, Troponin I High Sens 21, Total Protein 7.0, Albumin 3.1 L, Globulin 3.9, Albumin/Globulin Ratio 0.8 L, TSH 47.90 H 05/14/22 16:06: Lactic Acid 0.8 05/14/22 16:06: B-Natriuretic Peptide 186.8 H 05/14/22 17:27: Urine Color Yellow, Urine Clarity Sl. Cloudy, Urine pH 6.0, Ur Specific [place] 1.010, Urine Protein 30 H, Urine Glucose (UA) Normal, Urine Ketones Negative, Urine Occult Blood 25 H, Urine Nitrite Negative, Urine Bilirubin Negative, Urine Urobilinogen Normal, Ur Leukocyte Esterase 100 H, Urine RBC 0-5 SEEN, Urine WBC 5-10 SEEN, Ur Squamous Epith Cells 0-5 SEEN, Urine Bacteria 1+, Urine Mucus 0 SEEN 05/14/22 23:15: Troponin I High Sens 05/15/22 00:49: Troponin I High Sens 21 05/15/22 06:02: WBC 7.5, RBC 4.55, Hgb 12.8, Hct 40.9, MCV 89.9, MCH 28.1, MCHC 31.3 L, RDW Std Deviation 48.5 H, RDW Coeff of Leslie 14.6, Plt Count 343, MPV 9.5, Immature Gran % (Auto) 1.200 H, Neut % (Auto) 73.9 H, Lymph % (Auto) 13.7 L, [place] % (Auto) 10.3 H, Eos % (Auto) 0.5, Baso % (Auto) 0.4, Absolute Neuts (auto) 5.5, Absolute Lymphs (auto) 1.03, Nucleated RBC % 0 05/15/22 06:02: Sodium 138, Potassium 4.4, Chloride 102, Carbon Dioxide 30.0, Anion Gap 6, BUN 30 H, Creatinine 1.36 H, Estim Creat Clear Calc 30.48, Est GFR (MDRD) Af Amer 48 L, Est GFR (MDRD) Non-Af 39 L, BUN/Creatinine Ratio 22.1 H, Glucose 103, Calcium 9.3, Iron 30 L, TIBC 380, Iron Saturation 7.9 L, Ferritin 91, Total Bilirubin 0.80, AST 23, ALT 29, Alkaline Phosphatase 93, Total Protein 7.4, Albumin 3.3, Globulin 4.1, Albumin/Globulin Ratio 0.8 L, Triglycerides 76, Cholesterol 127, LDL Cholesterol 70, VLDL Cholesterol 15, HDL Cholesterol 42, Folate 9.30, Free T4 0.61 L, Free T3 pg/dL 1.6 L 05/15/22 06:02: Vitamin B12 910 Micro: Microbiology 05/14/22 17:27 Urine, Clean Catch Urine Culture - Final Mixed Gram Pos & Gram Neg Org Radiography Diagnostic Testing: Radiology Impression Venous Doppler Study 05/14/22 16:00 Interpretation Summary No evidence for acute deep venous thrombosis bilateral lower extremities with p atent and compressible bilateral great saphenous veins. Technically difficult examination with patient inability to tolerate compression at the femoral vein and difficulty with imaging secondary to body habitus. Ordering Physician: Zay Hooks Referring Physician: Flores Boles M.D. Performed By: Chayito Glover RVT Chest X-Ray 05/14/22 16:20 IMPRESSION: COPD and ASHD. No acute cardiopulmonary pathology. Electronically Signed: Suresh Carl MD at 16:37 EST Reading Location ID and State: [facility] / [place] , Service support , Physical Exam Const alert, oriented x3 and no apparent distress HEENT head/scalp atraumatic, moist oral mucous membranes and oropharynx normal Head and Scalp: normocephalic Mouth: oral and palatal mucosa normal Eyes PERRL, EOMs intact bilaterally and conjunctivae normal Neck no lymphadenopathy, supple and no JVD Resp normal respiratory effort, no retractions, no use of accessory muscles and clear to auscultation bilaterally Cardio regular rate, regular rhythm, S1 normal heart sound, S2 normal heart sound and no murmurs GI normal to inspection, nondistended, normoactive bowel sounds, soft to palpation, non-tender and non-distended Extremity Extremity Narrative: bilateral lower extremity edema, with both LEs wrapped in JONATHON bandage. Neuro oriented x3, CN's II-XII intact bilaterally, moves all extremities and no focal motor deficits Sensorium / Orientation: awake and alert Motor Exam: strength 5/5 throughout Psych affect normal Assessment & Plan Assessment/Plan (1) Hypertension, accelerated, with diastolic congestive heart failure, NYHA class 1: (2) Bilateral cellulitis of lower leg: (3) Diastolic CHF: (4) Hypokalemia: (5) Hypomagnesemia: PLAN: Plan #New onset afib * was in RVR, but that has resolved. * now in normal sinus rhythm * on metoprolol. On eliquis * refuses 2D echo as she doesnt think there is anything wrong with her * #Bilateral LE edema * concerning for chronic venous stasis * both LEs wrapped in bandage * there was lowr suspicion for cellulitis * DVT of LE negative for any evidence of DVT * on IV lsaix. JONATHON wraps in place * may need to follow up with wound care on outpatient basis for treatment of lym phedema * #HFpEF * Not in exacerbation. Has not been using any of her meds at home. * Last echo in records from 2014 showed EF of 70% with diastolic dysfunction. Patient now refusing 2D echo. * Continue Lasix #Hypothyroidism * This is also a result of thyroid cancer s/p resection. TSH on admission is elevated at 47.9. * Patient to get off of her Synthroid dose and says she had not had any complaints. * Started on p.o. Synthroid and which was adjusted per TSH. Free T4 was also low at 0.61. Free T3 also low at 1.6. * #CKD stage III: Further stratification unavailable due to lack of baseline crea tinine. Will trend creatinine. #Iron deficiency: * Hemoglobin is 12.8. * Hemoglobin was 11.5 on admission so iron panel ordered which showed iron saturation of 7.9 indicating of iron deficiency. * Will start on oral iron supplementation. * #Hypertension: On metoprolol. She had not been on her medications and this was resumed. Hyperlipidemia: Patient refusing statins as she does not want to take any medications. Lipid panel ordered. #DVT prophylaxis: Started on Eliquis on account of new onset A-fib. Charges/Coding Visit Charges Inpatient E&M: 02902 Subs Hosp L2
--- NOTE | 2022-05-15 14:42 | WOUNDNOTE ---
wound photo: right lower leg
--- NOTE | 2022-05-15 14:43 | WOUNDNOTE ---
wound photo: left lower leg
--- NOTE | 2022-05-15 14:43 | WOUNDNOTE ---
wound photo: bilateral lower leg
--- NOTE | 2022-05-15 14:44 | WOUNDNOTE ---
wound photo: right posterior lower leg
--- NOTE | 2022-05-15 15:45 | CASEMGMT ---
SW spoke with patient and her choices were [facility] (if they have scientologist services) and if not [facility]. SW sent referral to [facility] and asked about scientologist services. Guerita DORANTES
--- NOTE | 2022-05-15 22:50 | NURSING ---
Pt refuses metoprolol and Eliquis at this time. education completed on Afib and risk for stroke associated with abnormal heart rhythm, fast heart rate. pt states, I am full of the holy spirit. dr navarrete.
--- NOTE | 2022-05-16 02:06 | PCM.HOSP.N ---
Hospitalist Note Notified by nursing staff patient again refusing medications and treatments.
[2022-05-16 04:20] VITALS: BP 152/98; PULSE 109; RESP 20; TEMP 36.9; O2SAT 98
[2022-05-16 05:01] VITALS: BMI 46.0
[2022-05-16 06:35] LABS: Absolute Lymphocyte Count 1.01 X10^3/uL (0.83-4.51); Absolute Neutrophil Count 6.9 X10^3/uL (2.0-7.7); Basophil# 0.03 X10^3/uL; Basophil% 0.3 % (0-1); Eosinophil# 0.11 X10^3/uL; Eosinophils% 1.2 % (0-5); Hematocrit 39.6 % (37-47); Hemoglobin 12.5 g/dL (12.0-15.0); Lymphocyte # 1.01 X10^3/ul (0.83-4.51); Lymphocyte % 11.1 % (19-41); Mean Corp Hgb Conc 31.6 g/dL (32-36); Mean Corpuscular Hgb 28.5 pg (27.0-32.0); Mean Corpuscular Volume 90.4 fL (81-99); Monocyte# 0.95 X10^3/uL; Monocyte% 10.5 % (0-10); NRBC Flagged by Analyzer 0 % (0-5); Neutrophil # 6.89 X10^3/uL (2.7-7.7); Platelet Count 347 K/mm3 (150-450); RBC Distribution Width CV 14.7 % (11.6-14.6); RBC Distribution Width SD 49.2 fl (35.1-43.9); Red Blood Count 4.38 M/mm3 (4.2-5.4); White Blood Count 9.1 K/mm3 (4.4-11.0)
[2022-05-16 06:49] LABS: Anion Gap 8 (5-15); BUN 36 mg/dL (7-18); BUN/Creat Ratio 22.5 RATIO (10-20); Calcium,Total 8.7 mg/dL (8.5-10.1); Chloride 100 mmol/L (98-107); EST Glomerular Filtration Rate 33 mL/min (>60); Est Glom Filt Rate - Afr Amer 40 mL/min (>60); Estimated Creatinine Clearance 25.91 ml/min; Glucose 126 mg/dL (74-106); Potassium 3.7 mmol/L (3.5-5.1); Sodium Level 137 mmol/L (136-145)
[2022-05-16 07:47] VITALS: O2SAT 98
[2022-05-16] MEDS: Aspirin 81 MG TAB.CHEW PO (08:06)
--- NOTE | 2022-05-16 09:16 | NURSING ---
This nurse was attempting to give medications this morning, patient states that she will not take anything except the aspirin because she does not have a heart problem. Patient also refusing being put on tele monitor. This nurse provided education on importance of medication and compliance to monitor patient still refuses.
[2022-05-16 09:19] VITALS: BP 150/68; PULSE 82; RESP 16; TEMP 36.9; O2SAT 98
--- NOTE | 2022-05-16 10:11 | CASEMGMT ---
SW notified patient that [facility] can accept her and they have synagogue services on Sundays. Patient was agreeable to [facility]. Per physician patient will be discharged today. ZENON notified [facility] that patient will be coming today. Await orders. Guerita DORANTES
--- NOTE | 2022-05-16 11:44 | WOUNDNOTE ---
Pt is being discharged to [facility] later today. will leave wraps in place to bilateral lower legs since the wounds will be assessed at the group home.
--- NOTE | 2022-05-16 12:01 | TREXTCAR_ITS ---
Diet Diet Order/Speech Therapy: 05/15/22 10:17 Diet: Regular - General Dietary Modifications:: Sodium Restricted Is pt able to select menu?: Yes Routine Orders/Code Status Enema Type: Fleetz Enema Frequency: Daily PRN Suppository Type: Dulcolax 10mg Suppository Frequency: Daily PRN O2 Frequency: PRN Keep PO Greater than or Equal to (%): 90 Wound(s) R leg: Wound Type: scattered stasis ulcers Dressing Change: Adaptic left leg: Wound Type: cluster of stasis ulcers Dressing Change: Adaptic Therapies Weight Bearing: Weight bearing as tolerated Physical Therapy: Eval and Treat Occupational Therapy: Eval and Treat Problem/Diagnosis (1) Hypertension, accelerated, with diastolic congestive heart failure, NYHA class 1: Status: Acute Code(s): I11.0 - Hypertensive heart disease with heart failure; I50.30 - Unspecified diastolic (congestive) heart failure (2) Bilateral cellulitis of lower leg: Status: Acute Code(s): L03.116 - Cellulitis of left lower limb; L03.115 - Cellulitis of right lower limb (3) Diastolic CHF: Status: Acute Code(s): I50.30 - Unspecified diastolic (congestive) heart failure (4) Hypokalemia: Status: Acute Code(s): E87.6 - Hypokalemia (5) Hypomagnesemia: Status: Acute Code(s): E83.42 - Hypomagnesemia Plan #New onset afib * was in RVR, but that has resolved. * now in normal sinus rhythm * on metoprolol. On eliquis * refuses 2D echo as she doesnt think there is anything wrong with her * #Bilateral LE edema * concerning for chronic venous stasis * both LEs wrapped in bandage * there was lowr suspicion for cellulitis * DVT of LE negative for any evidence of DVT * on IV lsaix. JONATHON wraps in place * may need to follow up with wound care on outpatient basis for treatment of lymphedema * #HFpEF * Not in exacerbation. Has not been using any of her meds at home. * Last echo in records from 2014 showed EF of 70% with diastolic dysfunction. Patient now refusing 2D echo. * Continue Lasix #Hypothyroidism * This is also a result of thyroid cancer s/p resection. TSH on admission is elevated at 47.9. * Patient to get off of her Synthroid dose and says she had not had any complaints. * Started on p.o. Synthroid and which was adjusted per TSH. Free T4 was also low at 0.61. Free T3 also low at 1.6. * #CKD stage III: Further stratification unavailable due to lack of baseline creatinine. Will trend creatinine. #Iron deficiency: * Hemoglobin is 12.8. * Hemoglobin was 11.5 on admission so iron panel ordered which showed iron saturation of 7.9 indicating of iron deficiency. * Will start on oral iron supplementation. * #Hypertension: On metoprolol. She had not been on her medications and this was resumed. Hyperlipidemia: Patient refusing statins as she does not want to take any medications. Lipid panel ordered. #DVT prophylaxis: Started on Eliquis on account of new onset A-fib. Allergies/Procedures Done in Hospital Allergies celecoxib [From Celebrex] Adverse Reaction (Verified 05/14/22 15:45) Other CHEST PAIN morphine Adverse Reaction (Verified 05/14/22 15:45) Vomiting Procedures: None Type of Care/Length of Stay Estimated LOS: Convalescent Care Less Than 30 days Type of Care Needed: Skilled Rehab Potential: Fair Prognosis: Fair Additional Orders/Day of Discharge Day of Discharge: 05/16/22 Dietary and Speech Recommendations Dietitian Recommendations/Changes: will adjust diet to regular/sodium restricted given pt agitation over current diet order and high likelihood pt will not make any dietary changes upon discharge. Discharge Plan Admission Admit Date/Time: 05/14/22 19:53 Primary Reason for Your Visit: afib with RVR Attending Provider: Joanie Lopez Primary Care Provider: Flores Boles Consulting Providers: Vivian Armstrong Discharge Orders/Prescriptions Prescriptions: New furosemide 40 mg Tablet 40 mg PO DAILY Qty: 30 2RF levothyroxine 88 mcg Tablet 88 mcg PO DAILY@0600 Qty: 30 2RF metoprolol tartrate 25 mg Tablet 25 mg PO BID Qty: 6 2RF Eliquis 5 mg Tablet 5 mg PO BID Qty: 60 1RF Referrals / Follow Up: Perico Norris MD [Med Staff - Active Staff] - Within 1 Month (see to establish cardiology care for afib.) Flores Boles DO [Primary Care Provider] - Within 2 Weeks Disposition Disposition (needs filled in before D/C Order can be placed): Longterm Facility
--- NOTE | 2022-05-16 12:04 | DS.PCM_ITS ---
Providers Date of Admission: 05/14/22 Date of Discharge: 05/16/22 Primary Care Physician: Dr. 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 Routine Comment: Reason for Consult:: BL LE stasis disease Reason For Visit: PAF RVR Diagnosis Discharge Diagnosis (1) Hypertension, accelerated, with diastolic congestive heart failure, NYHA class 1: Status: Acute Code(s): I11.0 - Hypertensive heart disease with heart failure; I50.30 - Unspecified diastolic (congestive) heart failure (2) Bilateral cellulitis of lower leg: Status: Acute Code(s): L03.116 - Cellulitis of left lower limb; L03.115 - Cellulitis of right lower limb (3) Diastolic CHF: Status: Acute Code(s): I50.30 - Unspecified diastolic (congestive) heart failure (4) Hypokalemia: Status: Acute Code(s): E87.6 - Hypokalemia (5) Hypomagnesemia: Status: Acute Code(s): E83.42 - Hypomagnesemia Plan #New onset afib * was in RVR, but that has resolved. * now in normal sinus rhythm * on metoprolol. On eliquis * refuses 2D echo as she doesnt think there is anything wrong with her * #Bilateral LE edema * concerning for chronic venous stasis * both LEs wrapped in bandage * there was lowr suspicion for cellulitis * DVT of LE negative for any evidence of DVT * on IV lsaix. JONATHON wraps in place * may need to follow up with wound care on outpatient basis for treatment of lymphedema * #HFpEF * Not in exacerbation. Has not been using any of her meds at home. * Last echo in records from 2014 showed EF of 70% with diastolic dysfunction. Patient now refusing 2D echo. * Continue Lasix #Hypothyroidism * This is also a result of thyroid cancer s/p resection. TSH on admission is elevated at 47.9. * Patient to get off of her Synthroid dose and says she had not had any complaints. * Started on p.o. Synthroid and which was adjusted per TSH. Free T4 was also low at 0.61. Free T3 also low at 1.6. * #CKD stage III: Further stratification unavailable due to lack of baseline creatinine. Will trend creatinine. #Iron deficiency: * Hemoglobin is 12.8. * Hemoglobin was 11.5 on admission so iron panel ordered which showed iron saturation of 7.9 indicating of iron deficiency. * Will start on oral iron supplementation. * #Hypertension: On metoprolol. She had not been on her medications and this was resumed. Hyperlipidemia: Patient refusing statins as she does not want to take any medications. Lipid panel ordered. #DVT prophylaxis: Started on Eliquis on account of new onset A-fib. Medications at Discharge Home Medications apixaban 5 mg tablet (Eliquis) 5 mg PO BID #60 tabs 05/16/22 furosemide 40 mg tablet 40 mg PO DAILY #30 tabs 05/16/22 levothyroxine 88 mcg tablet 88 mcg PO DAILY@0600 #30 tabs 05/16/22 metoprolol tartrate 25 mg tablet 25 mg PO BID #6 tabs 05/16/22 Hospital Course Operations None Procedures None Summary of Care Provided Minutes Spent on Discharge: 45 Hospital Course: Patient is an 81-year-old female with a past medical history as outlined was admitted through the ED on 06/11/2022 with a complaint of bilateral lower extremity edema as well as redness. Patient had a complicated history which included hypertension, heart failure preserved ejection fraction, hyperlipidemia and hypothyroidism as a result of thyroidectomy from thyroid cancer and asthma. She had not been compliant with her meds and says she had taken herself off her meds many years ago and had been fine. She came in because she had some redness and blisters on her lower extremity which she said was because she had worn her boot and she thought something had been done to her boots. On admission she was found to be in A-fib with RVR. She did not have a history of A-fib with RVR. She was started on metoprolol and also started on Eliquis. Duplex of the lower extremities was negative for any evidence of DVT. Urinalysis showed 1+ bacteria though she did not have any urinary symptoms. She was admitted and managed for bilateral lower extremity edema and lymphedema and A-fib with RVR. Her heart rate improved and became controlled. 2D echo was ordered but patient refused to have it done as she did not think there was anything wrong with it. His Synthroid was also resumed at her previous dose of 88 mcg daily. Patient refused to take her meds and refused to cooperate with her care in the hospital as she wanted natural multivitamins to provide holistic treatments to cure her. She therefore refused to comply with treatment. Physical therapy did evaluate her and she was deemed as too weak to go home and recommended to go to a correction facility. She was discharged correction facility on 05/16/2022. She is to follow-up with her primary care doctor within 1 to 2 weeks. She was counseled to be compliant with her medications and was given prescription for metoprolol and Eliquis as well as Synthroid. Patient seen and examined prior to discharge. She had no active complaints. Review of systems otherwise negative. Labs and vitals reviewed. Home medication reviewed and reconciled. Physical Exam Const alert, oriented x3 and no apparent distress General Appearance: cooperative Orientation / Consciousness: awake Exam Limitations: no limitations HEENT normocephalic, head/scalp atraumatic, hearing grossly normal bilaterally, moist oral mucous membranes and oropharynx normal Mouth: oral and palatal mucosa normal Eyes PERRL, EOMs intact bilaterally and conjunctivae normal Neck no lymphadenopathy, supple and no JVD Resp normal respiratory effort, no retractions, no use of accessory muscles and clear to auscultation bilaterally Cardio regular rate, regular rhythm, S1 normal heart sound, S2 normal heart sound and no murmurs GI normal to inspection, nondistended, normoactive bowel sounds, soft to palpation, non-tender and non-distended Extremity Extremity Narrative: bilateral lower extremity edema, with both LEs wrapped in JONATHON bandage. Skin Skin Narrative: as under extremities Neuro oriented x3, CN's II-XII intact bilaterally, moves all extremities and no focal motor deficits Sensorium / Orientation: awake and alert Motor Exam: strength 5/5 throughout Psych affect normal Weight / BMI Weight Weight: 293 lb 14.019 oz Body Mass Index (BMI) 46.0 ABG / Lab / Microbiology Data Result Diagrams: 05/16/22 06:25 05/16/22 06:25 Laboratory: Laboratory Results - last 24 hr 05/16/22 06:25: WBC 9.1, RBC 4.38, Hgb 12.5, Hct 39.6, MCV 90.4, MCH 28.5, MCHC 31.6 L, RDW Std Deviation 49.2 H, RDW Coeff of Leslie 14.7 H, Plt Count 347, MPV 9.0, Immature Gran % (Auto) 0.900, Neut % (Auto) 76.0 H, Lymph % (Auto) 11.1 L, [place] % (Auto) 10.5 H, Eos % (Auto) 1.2, Baso % (Auto) 0.3, Absolute Neuts (auto) 6.9, Absolute Lymphs (auto) 1.01, Nucleated RBC % 0 05/16/22 06:25: Sodium 137, Potassium 3.7, Chloride 100, Carbon Dioxide 29.0, Anion Gap 8, BUN 36 H, Creatinine 1.60 H, Estim Creat Clear Calc 25.91, Est GFR (MDRD) Af Amer 40 L, Est GFR (MDRD) Non-Af 33 L, BUN/Creatinine Ratio 22.5 H, Glucose 126 H, Calcium 8.7 Microbiology: Microbiology 05/14/22 17:27 Urine, Clean Catch Urine Culture - Final Mixed Gram Pos & Gram Neg Org D/C Instructions Discharge Diet: Low fat / Low cholesterol Discharge Activity: Return to Normal Activity Weight Bearing Status: Weight bearing as tolerated Call your doctor if you observe: Fever of 101 or Higher, Shortness of breath, Dizziness, Swelling in the ankles, Chest pain and Increased palpitations (irregular heartbeat) Meaningful Use Info Meaningful Use Diagnoses (Choose all that apply): None applicable Discharge Plan Admission Admit Date/Time: 05/14/22 19:53 Primary Reason for Your Visit: afib with RVR Attending Provider: Joanie Lopez Primary Care Provider: Flores Boles Consulting Providers: Vivian Armstrong Discharge Orders/Prescriptions Prescriptions: New furosemide 40 mg Tablet 40 mg PO DAILY Qty: 30 2RF levothyroxine 88 mcg Tablet 88 mcg PO DAILY@0600 Qty: 30 2RF metoprolol tartrate 25 mg Tablet 25 mg PO BID Qty: 6 2RF Eliquis 5 mg Tablet 5 mg PO BID Qty: 60 1RF Referrals / Follow Up: Perico Norris MD [Med Staff - Active Staff] - Within 1 Month (see to establish cardiology care for afib.) Flores Boles DO [Primary Care Provider] - Within 2 Weeks Disposition Disposition (needs filled in before D/C Order can be placed): [facility] Charges/Coding Visit Charges Inpatient E&M: 51013 Disch Hosp >30min
--- NOTE | 2022-05-16 13:11 | CASEMGMT ---
Addendum entered by Guerita Duran 05/16/22 14:04: SW checked back with patient and her daughter can take her to [facility]. Patient's daughter works between [place] and [place] and she gets off work at 5p. SW notified [facility]. ZENON will also notify RN and laboratory secretary. Plan: d/c to [facility] under skilled level of care on a convalescent stay. Patient's daughter will transport her via private vehicle. Guerita DORANTES Original Note: ZENON sent orders to [facility] via [facility]. SW spoke with patient and let her know that she will go by wheelchair van and that is not covered by insurance so she will get a bill. Patient said she wants to try and see if she can get a ride. SW will check back. Guerita DORANTES
[2022-05-16 15:20] VITALS: BP 137/68; PULSE 97; RESP 18; TEMP 36.4; O2SAT 100
--- NOTE | 2022-05-16 17:04 | NURSING ---
Attempted to call [facility] x2 times to give report on patient with no answer.
[2022-05-16 19:17] VITALS: BP 154/75; PULSE 70; RESP 15; TEMP 36.7; O2SAT 99
--- NOTE | 2022-05-16 20:26 | NURSING ---
Report called to Abram RODRÍGUEZ at [facility], RN declines questions at this time.
== END 2022-05-16 19:37 | disposition skilled nursing facility (03) | DRG 309 ==
LOC: ED 19:58 → PCU 20:21
PROVIDERS: Admitting Provider Family Medicine; Emergency Provider Emergency Medicine; PCP Internal Medicine; Visit Provider Student in an Organized Health Care Education/Training Program
DX: I48.0 Paroxysmal atrial fibrillation (principal); L03.115 Cellulitis of right lower limb; I13.0 Hypertensive heart and chronic kidney disease with heart failure and stage 1 through stage 4 chronic kidney disease, or unspecified chronic kidney disease; I50.32 Chronic diastolic (congestive) heart failure; Z68.42 Body mass index [BMI] 45.0-49.9, adult; L03.116 Cellulitis of left lower limb; N18.30 Chronic kidney disease, stage 3 unspecified; E66.01 Morbid (severe) obesity due to excess calories; I87.2 Venous insufficiency (chronic) (peripheral); E78.5 Hyperlipidemia, unspecified; E89.0 Postprocedural hypothyroidism; I89.0 Lymphedema, not elsewhere classified; J45.909 Unspecified asthma, uncomplicated; Z91.14 Patient's other noncompliance with medication regimen; Z87.891 Personal history of nicotine dependence; Z96.653 Presence of artificial knee joint, bilateral; Z85.850 Personal history of malignant neoplasm of thyroid
CPT/HCPCS: 36415; 71045; 80048; 80053; 80061; 81001; 82607; 82728; 82746; 83540; 83550; 83605; 83735; 83880; 84439; 84443; 84481; 84484; 85025; 87086; 87088; 93005; 93970; 97162; 97166; 97802; 99285; J7050; A4216; J0295; J2405

== ENCOUNTER 2022-06-17 17:07 | Observation (INO) | payer MEDICARE, OTHER, SELFPAY ==
[2022-06-17 17:13] VITALS: BP 160/116; PULSE 139; RESP 20; TEMP 36.1; O2SAT 100
--- NOTE | 2022-06-17 18:32 | ED.RN ---
spoke with florence at [facility]. Dr. Menendez d/c'd pt. pt was d/c on thursday, pt refused to leave and called the Safety Grooving Machine Operator's office. They aloud pt to stay till yesterday. Granddaughter worked all day yesterday trying to get the pt to leave with no success. [facility] finally was able to get pt out today. pt was noncompliant with meds and with PT while a resident. PT had to work around her prayer schedule. Florence states that the pt probably needs a psych consult.
[2022-06-17 19:35] LABS: Amphetamine Urine VISTA NEGATIVE (<1000 ng/mL); Barbiturate Urine VISTA NEGATIVE (< 200 ng/mL); Benzodiazepine Urine VISTA NEGATIVE (< 200 ng/mL); Cocaine Urine VISTA NEGATIVE (< 300 ng/mL); Ecstacy Urine VISTA NEGATIVE (< 500 ng/mL); Methadone Urine VISTA NEGATIVE (< 300 ng/mL); PCP Urine VISTA NEGATIVE (< 25 ng/mL); THC Urine VISTA NEGATIVE (< 50 ng/mL); Vista UDS pH Range 6
--- NOTE | 2022-06-17 20:04 | ED.RN ---
pt refuses to sit in the bed. pt refuses to have blood drawn
[2022-06-17] MEDS: Ziprasidone IM 20 MG/ML VIAL 10 MG IM (20:37)
[2022-06-17 21:09] VITALS: RESP 15
--- NOTE | 2022-06-17 22:50 | EX.ED.VIS.PS ---
HPI <Dr. Flavio Pretty MD - Last Filed: 06/17/22 23:32> HPI - Psych History of Present Illness Chief Complaint: Lower Extremity Injury Detail of Chief Complaint: Delusional Informant: patient and SNF (Nursing facility was contacted. Notes were taken and detailed in the HPI narrative) Limited: uncooperative and other (Psychiatric illness with paranoid ideation, mu-ism referencing and denial) Onset/Context/Timing Onset: Days (Per nursing facility) Context: Unknown Conflict: - (Unknown unknown) Timing: Continuous and Waxes and wanes Current Severity: Mild Maximum Severity: Severe Worsened by: - (Unknown certain) Relieved by: Nothing Associated Symptoms Associated Symptoms - Psych: Positive for Change in sleeping, Easily distracted, Confusion, Paranoia and - (Patient is delusional and uses mu-ism references when speaking of things that went awry.); Negative for Hopelessness, Suicidal Thoughts or Visual Hallucinations Specific plan (suicidal thought): Not applicable Narrative Narrative: Patient is a 81-year-old woman. Patient refuses to take her medicines. She states when she was admitted to the nursing facility 33 days ago her legs were normal size. She states she was not cared for appropriately. She states she wants her right hand test to determine what they did to her hand. She was informed that there appears to be a madie consistent with an IV draw for blood work. Patient states she had a car prior to placement in the nursing facility. She states it is now in God's hands with regards to her car and does not want to discuss what happened to her car. She states it is also in God's hand regarding what they did to her at the nursing facility and he would corduroy brusher operator them when appropriate. Patient is insistent that blood work was drawn at the emergency room. She was informed that she told me that blood work was drawn at the nursing facility. She informed me that she refused to leave the nursing facility on Thursday because she was not seen by a doctor. She told the nursing staff she would not leave until she was seen by a physician. Dr. Guillermo Valderrama did see her today and did discharge her. Patient admits she has not taken her medicines because they fabricated all these problems that she has. Patient's nurse contacted the nursing facility determine what actually did or did not happen. She apparently was upset with the nursing staff and called the foreign food cook specialty on the nursing staff on Thursday. They confirmed that she refused to take any of her meds. They confirmed that she refused to be discharged from the nursing facility on Thursday. Went patient was informed that she must cooperate allow the nurses to draw blood work she interrupted me and told me she was between prayers. The nursing facility also stated patient wanted to go home but then when told she could go home she would refuse. Prior similar symptoms: Yes Recent Illness/Hospitalization: Yes [facility] <Dr. Flavio Pretty MD - Last Filed: 06/17/22 23:32> [facility] Medical History Asthma Atrial fibrillation Atrial fibrillation with RVR Cellulitis of lower extremity Chronic anemia CKD (chronic kidney disease), stage III Creatinine elevation Diastolic CHF Hypertension Hypertension, accelerated, with diastolic congestive heart failure, NYHA class 1 Hypokalemia Hypomagnesemia Hypothyroid Hypothyroidism Hypothyroidism associated with surgical procedure Morbid obesity Thyroid cancer Venous insufficiency of both lower extremities Home Medications apixaban 5 mg tablet (Eliquis) 5 mg PO BID #60 tabs 05/16/22 [Rx Last Taken Unknown] furosemide 40 mg tablet 40 mg PO DAILY #30 tabs 05/16/22 [Rx Last Taken Unknown] levothyroxine 88 mcg tablet 88 mcg PO DAILY@0600 #30 tabs 05/16/22 [Rx Last Taken Unknown] metoprolol tartrate 25 mg tablet 25 mg PO BID #6 tabs 05/16/22 [Rx Last Taken Unknown] Allergy/AdvReac Type Severity Reaction Status Date / Time celecoxib [From Celebrex] AdvReac Other Verified 06/17/22 17:16 morphine AdvReac Vomiting Verified 06/17/22 17:16 Family History Mother Diabetes Hypertension Father Heart disease Surgical History H/O total hysterectomy with bilateral salpingo-oophorectomy (BSO) History of thyroidectomy Hx of cholecystectomy Hx of total knee arthroplasty S/P appendectomy Status post insertion of dialysis catheter Social History household members: none Smoking Status: Former smoker how long ago did patient quit smoking: Smoked age [age], smoked 1-1.5 ppd until quit. alcohol intake: current alcohol intake frequency: holidays/special occasions only substance use type: does not use ROS <Dr. Flavio Pretty MD - Last Filed: 06/17/22 23:32> ROS ED Review of Systems ROS Unobtainable: due to mental condition EXAM <Dr. Flavio Pretty MD - Last Filed: 06/17/22 23:32> Physical Exam Const Vital Signs: 06/17/22 17:13 06/17/22 21:09 06/18/22 01:00 Temperature 96.9 F L Temperature Source Temporal Pulse Rate 139 H 84 Respiratory Rate 20 H 15 15 Blood Pressure 160/116 H 156/119 H Blood Pressure Mean 130 131 Pulse Ox 100 96 Oxygen Delivery Method Room Air Room Air Room Air Positive well nourished, well developed and obese General Appearance ED: well developed Nutritional Appearance: obese HEENT Reports TM's clear and moist mucous membranes normocephalic and atraumatic Tympanic Membrane ED: Yes TM's clear Eyes PERRL and EOMs intact bilaterally General Eye ED: Negative for pale conjunctiva or scleral icterus Neck no lymphadenopathy, supple and no JVD Resp normal respiratory effort and clear to auscultation bilaterally Cardio S1 normal heart sound, S2 normal heart sound and no murmurs Rate: regular rate GI non-tender, non-distended and no masses Palpation: soft Back/Spine no CVA tenderness Extremity Extremity Narrative: Patient has marked lymphedema with venous stasis changes of her lower extremities. Pulses are not palpable because of the amount of edema. Neuro CN's II-XII intact bilaterally Neuro Narrative: Moves all extremities. Sensorium / Orientation: alert Psych activity/motor behavior normal, denies hallucinations, denies homicidal ideation and denies suicidal ideation Appearance: grossly normal, appropriate and other Patient does have body odor. Attitude: other Patient is insistent that blood work was drawn here. She is insistent that she had something done to her at the nursing facility this morning. Activity / Motor Behavior: disorganized Speech: excessive and loud Mood & Affect: labile affect and expansive affect Thought Process: confused and loose associations Thought Content: No suicidality, No homicidality, No phobia(s), delusion(s) Delusional Thought Content Details: Positive for paranoid and No hallucination(s) Memory / Cognition: memory grossly impaired Insight: poor Judgement: limited Skin Skin Narrative: Venous stasis dermatitis lower extremity <Dr. Jose Hopson DO - Last Filed: 06/18/22 04:01> Physical Exam Const Vital Signs: 06/17/22 17:13 06/17/22 21:09 06/18/22 01:00 Temperature 96.9 F L Temperature Source Temporal Pulse Rate 139 H 84 Respiratory Rate 20 H 15 15 Blood Pressure 160/116 H 156/119 H Blood Pressure Mean 130 131 Pulse Ox 100 96 Oxygen Delivery Method Room Air Room Air Room Air MDM <Dr. Flavio Pretty MD - Last Filed: 06/17/22 23:32> MDM MDM Narrative Medical decision making narrative: Patient was willing to give urine sample. She refused blood work. She states we already ron blood. I informed her several times that she informed us that blood work was drawn at the nursing facility. She then stated she never told us. Because patient was not cooperative she was given Geodon. Patient is still not cooperative and blood work has not been obtained. The evening physician was made aware of the patient. Once laboratory studies have returned and there is no evidence of metabolic or infectious cause of her behavior damaris social media content specialist from the counseling center will need to see patient for psychiatric placement Lab Data Labs: Laboratory Results - last 24 hr 06/17/22 06/17/22 06/17/22 19:05 23:10 23:10 WBC 7.0 RBC 4.89 Hgb 13.8 Hct 44.7 MCV 91.4 MCH 28.2 MCHC 30.9 L RDW Std Deviation 50.4 H RDW Coeff of Leslie 15.0 H Plt Count 317 MPV 9.8 Immature Gran % (Auto) 0.700 Neut % (Auto) 64.8 Lymph % (Auto) 23.3 Faulk % (Auto) 9.6 Eos % (Auto) 1.0 Baso % (Auto) 0.6 Absolute Neuts (auto) 4.5 Absolute Lymphs (auto) 1.62 Nucleated RBC % 0 Sodium 137 Potassium 4.6 Chloride 110 H Carbon Dioxide 22.0 Anion Gap 5 BUN 28 H Creatinine 1.28 H Est GFR (MDRD) Af Amer 51 L Est GFR (MDRD) Non-Af 42 L BUN/Creatinine Ratio 21.9 H Glucose 104 Calcium 9.2 Urine Opiates Screen NEGATIVE Urine Methadone Screen NEGATIVE Ur Barbiturates Screen NEGATIVE Ur Phencyclidine Scrn NEGATIVE Ur Amphetamines Screen NEGATIVE MDMA (Ecstasy) Screen NEGATIVE U Benzodiazepines Scrn NEGATIVE Urine Cocaine Screen NEGATIVE U Cannabinoids Screen NEGATIVE Ur Drug Screen Comment Ethyl Alcohol 06/17/22 23:10 WBC RBC Hgb Hct MCV MCH MCHC RDW Std Deviation RDW Coeff of Leslie Plt Count MPV Immature Gran % (Auto) Neut % (Auto) Lymph % (Auto) Faulk % (Auto) Eos % (Auto) Baso % (Auto) Absolute Neuts (auto) Absolute Lymphs (auto) Nucleated RBC % Sodium Potassium Chloride Carbon Dioxide Anion Gap BUN Creatinine Est GFR (MDRD) Af Amer Est GFR (MDRD) Non-Af BUN/Creatinine Ratio Glucose Calcium Urine Opiates Screen Urine Methadone Screen Ur Barbiturates Screen Ur Phencyclidine Scrn Ur Amphetamines Screen MDMA (Ecstasy) Screen U Benzodiazepines Scrn Urine Cocaine Screen U Cannabinoids Screen Ur Drug Screen Comment Ethyl Alcohol < 3.0 <Dr. Jose Hopson, DO - Last Filed: 06/18/22 04:01> [facility] Lab Data Attestation: I reviewed the patient's lab results. Lab results narrative: CBC was reviewed and was within normal limits. Basic metabolic profile was reviewed. Creatinine was slightly elevated at 1.28. BUN was 28. Urine tox screen was reviewed and was negative. Serum alcohol level was reviewed and was negative. Labs: Laboratory Results - last 24 hr 06/17/22 06/17/22 06/17/22 19:05 23:10 23:10 WBC 7.0 RBC 4.89 Hgb 13.8 Hct 44.7 MCV 91.4 MCH 28.2 MCHC 30.9 L RDW Std Deviation 50.4 H RDW Coeff of Leslie 15.0 H Plt Count 317 MPV 9.8 Immature Gran % (Auto) 0.700 Neut % (Auto) 64.8 Lymph % (Auto) 23.3 Faulk % (Auto) 9.6 Eos % (Auto) 1.0 Baso % (Auto) 0.6 Absolute Neuts (auto) 4.5 Absolute Lymphs (auto) 1.62 Nucleated RBC % 0 Sodium 137 Potassium 4.6 Chloride 110 H Carbon Dioxide 22.0 Anion Gap 5 BUN 28 H Creatinine 1.28 H Est GFR (MDRD) Af Amer 51 L Est GFR (MDRD) Non-Af 42 L BUN/Creatinine Ratio 21.9 H Glucose 104 Calcium 9.2 Urine Opiates Screen NEGATIVE Urine Methadone Screen NEGATIVE Ur Barbiturates Screen NEGATIVE Ur Phencyclidine Scrn NEGATIVE Ur Amphetamines Screen NEGATIVE MDMA (Ecstasy) Screen NEGATIVE U Benzodiazepines Scrn NEGATIVE Urine Cocaine Screen NEGATIVE U Cannabinoids Screen NEGATIVE Ur Drug Screen Comment Ethyl Alcohol 06/17/22 23:10 WBC RBC Hgb Hct MCV MCH MCHC RDW Std Deviation RDW Coeff of Leslie Plt Count MPV Immature Gran % (Auto) Neut % (Auto) Lymph % (Auto) Faulk % (Auto) Eos % (Auto) Baso % (Auto) Absolute Neuts (auto) Absolute Lymphs (auto) Nucleated RBC % Sodium Potassium Chloride Carbon Dioxide Anion Gap BUN Creatinine Est GFR (MDRD) Af Amer Est GFR (MDRD) Non-Af BUN/Creatinine Ratio Glucose Calcium Urine Opiates Screen Urine Methadone Screen Ur Barbiturates Screen Ur Phencyclidine Scrn Ur Amphetamines Screen MDMA (Ecstasy) Screen U Benzodiazepines Scrn Urine Cocaine Screen U Cannabinoids Screen Ur Drug Screen Comment Ethyl Alcohol < 3.0 Management Discussion w/another healthcare provider: Hospitalist and Behavioral health Treatment and Re-Evaluation Narrative: Patient was evaluated by crisis counselor. Crisis does not feel patient meets criteria for geriatric psychiatric placement. Patient was discharged from [facility] today. Patient cannot care for herself at home. I will discuss case with the hospitalist for admission until she can be placed in a different fpc facility. He will admit the patient for observation. Discharge Plan Dx/Rx/DC Orders Clinical Impression: Debility, Diastolic dysfunction, left ventricle Disposition Disposition: Acute Care Hospital [facility]
[2022-06-17 23:30] LABS: Absolute Lymphocyte Count 1.62 X10^3/uL (0.83-4.51); Absolute Neutrophil Count 4.5 X10^3/uL (2.0-7.7); Basophil# 0.04 X10^3/uL; Basophil% 0.6 % (0-1); Eosinophil# 0.07 X10^3/uL; Hematocrit 44.7 % (37-47); Hemoglobin 13.8 g/dL (12.0-15.0); Lymphocyte # 1.62 X10^3/ul (0.83-4.51); Lymphocyte % 23.3 % (19-41); Mean Corp Hgb Conc 30.9 g/dL (32-36); Mean Corpuscular Hgb 28.2 pg (27.0-32.0); Mean Corpuscular Volume 91.4 fL (81-99); Mean Platelet Vol. 9.8 fl (6.2-12.0); Monocyte# 0.67 X10^3/uL; Monocyte% 9.6 % (0-10); NRBC Flagged by Analyzer 0 % (0-5); Neutrophil % 64.8 % (47-70); Platelet Count 317 K/mm3 (150-450); RBC Distribution Width SD 50.4 fl (35.1-43.9); Red Blood Count 4.89 M/mm3 (4.2-5.4)
[2022-06-17 23:47] LABS: Anion Gap 5 (5-15); BUN 28 mg/dL (7-18); BUN/Creat Ratio 21.9 RATIO (10-20); Calcium,Total 9.2 mg/dL (8.5-10.1); Chloride 110 mmol/L (98-107); Creatinine, Serum 1.28 mg/dL (0.55-1.02); EST Glomerular Filtration Rate 42 mL/min (>60); Est Glom Filt Rate - Afr Amer 51 mL/min (>60); Glucose 104 mg/dL (74-106); Potassium 4.6 mmol/L (3.5-5.1); Sodium Level 137 mmol/L (136-145)
[2022-06-17 23:51] LABS: Alcohol, Blood (Medical)-Serum < 3.0 mg/dL
[2022-06-18 01:00] VITALS: BP 156/119; PULSE 84; RESP 15; O2SAT 96
[2022-06-18 01:06] VITALS: BMI 46.3
--- NOTE | 2022-06-18 03:36 | PCM.HP.STD ---
HPI - General General Date of Admission: 06/18/22 Date of Service: 06/18/22 Chief Complaint: Inability to take care of self HPI Narrative FREDDY CUELLAR, is a 81 F with a significant history of hypertension; atrial fibrillation; bilateral leg edema; heart failure with preserved ejection fraction; hypothyroidism secondary to thyroid cancer status post resection; iron deficiency anemia who presents to the emergency department because she is unable to care of herself and family is also unable to care for self. Patient was at [facility]. However patient requested that she be discharged because the staff was not taking care of her. At the time of discharge reportedly patient called the police. Also patient wanted a physician to see her before she will be discharged. Subsequently she saw the physician and she was discharged. Reportedly she was not taking her medications. She reported that she had increased swelling in her legs while at [facility] because she was not getting enough therapy. When she was discharged home family realized that they could not take care of her so they brought her back to the emergency department for placement. Patient after evaluation by crisis was deemed not to be a candidate for geriatric psychiatry placement. At history taking patient reports that she does not need any medication and she cites yarsani reasons for her unpreparedness to take any medicine. [facility] Medical History Asthma Atrial fibrillation Atrial fibrillation with RVR Cellulitis of lower extremity Chronic anemia CKD (chronic kidney disease), stage III Creatinine elevation Diastolic CHF Hypertension Hypertension, accelerated, with diastolic congestive heart failure, NYHA class 1 Hypokalemia Hypomagnesemia Hypothyroid Hypothyroidism Hypothyroidism associated with surgical procedure Morbid obesity Thyroid cancer Venous insufficiency of both lower extremities Home Medications apixaban 5 mg tablet (Eliquis) 5 mg PO BID #60 tabs 05/16/22 [Rx Last Taken Unknown] furosemide 40 mg tablet 40 mg PO DAILY #30 tabs 05/16/22 [Rx Last Taken Unknown] levothyroxine 88 mcg tablet 88 mcg PO DAILY@0600 #30 tabs 05/16/22 [Rx Last Taken Unknown] metoprolol tartrate 25 mg tablet 25 mg PO BID #6 tabs 05/16/22 [Rx Last Taken Unknown] Allergy/AdvReac Type Severity Reaction Status Date / Time celecoxib [From Celebrex] AdvReac Other Verified 06/17/22 17:16 morphine AdvReac Vomiting Verified 06/17/22 17:16 Family History Mother Diabetes Hypertension Father Heart disease Surgical History H/O total hysterectomy with bilateral salpingo-oophorectomy (BSO) History of thyroidectomy Hx of cholecystectomy Hx of total knee arthroplasty S/P appendectomy Status post insertion of dialysis catheter Social History household members: none Smoking Status: Former smoker how long ago did patient quit smoking: Smoked age [age], smoked 1-1.5 ppd until quit. alcohol intake: current alcohol intake frequency: holidays/special occasions only substance use type: does not use ROS Review of Systems ROS Unobtainable: due to mental condition Vital Signs Vital Signs Vital Signs: 06/17/22 17:13 06/17/22 21:09 06/18/22 01:00 Temperature 96.9 F L Temperature Source Temporal Pulse Rate 139 H 84 Respiratory Rate 20 H 15 15 Blood Pressure 160/116 H 156/119 H Blood Pressure Mean 130 131 Pulse Ox 100 96 Oxygen Delivery Method Room Air Room Air Room Air Weight Weight: 134 kg Body Mass Index (BMI) 46.3 Physical Exam Narrative Physical exam: General: Well-nourished, well-developed. Head: Normocephalic, atraumatic, no tenderness Eyes: Vision is grossly intact. EOMI ENT, no trauma, moist mucous membranes, no rhinorrhea Neck: Nontender, No thyromegaly. CVS: Regular rate and rhythm. S1-S2 present. No murmur, gallop or rub. Respiratory : clear to auscultation bilaterally, chest wall nontender Abdomen: Soft, nontender, nondistended, normal bowel sounds, no masses : Deferred Back: Nontender, no CVA tenderness, no midline spinal tenderness, deformities, step-offs Extremities: Erythema and scales of bilateral lower legs. Edema bilateral legs. Nontender full range of motion, no trauma Skin: Normal color, no trauma, abrasions Neuro: Alert. Patient knows the month and the year. While it was production statistical clerk of June 17 patient stated that it was June 18. Cranial nerves II through XII grossly intact. Psychiatry: Delusional. Results Lab / Micro Data Attestation: I reviewed the patient's lab results. Result Diagrams: 06/17/22 23:10 06/17/22 23:10 Labs: Laboratory Results - last 24 hr 06/17/22 19:05: Urine Opiates Screen NEGATIVE, Urine Methadone Screen NEGATIVE, Ur Barbiturates Screen NEGATIVE, Ur Phencyclidine Scrn NEGATIVE, Ur Amphetamines Screen NEGATIVE, MDMA (Ecstasy) Screen NEGATIVE, U Benzodiazepines Scrn NEGATIVE, Urine Cocaine Screen NEGATIVE, U Cannabinoids Screen NEGATIVE, Ur Drug Screen Comment 06/17/22 23:10: WBC 7.0, RBC 4.89, Hgb 13.8, Hct 44.7, MCV 91.4, MCH 28.2, MCHC 30.9 L, RDW Std Deviation 50.4 H, RDW Coeff of Leslie 15.0 H, Plt Count 317, MPV 9.8, Immature Gran % (Auto) 0.700, Neut % (Auto) 64.8, Lymph % (Auto) 23.3, [place] % (Auto) 9.6, Eos % (Auto) 1.0, Baso % (Auto) 0.6, Absolute Neuts (auto) 4.5, Absolute Lymphs (auto) 1.62, Nucleated RBC % 0 06/17/22 23:10: Sodium 137, Potassium 4.6, Chloride 110 H, Carbon Dioxide 22.0, Anion Gap 5, BUN 28 H, Creatinine 1.28 H, Est GFR (MDRD) Af Amer 51 L, Est GFR (MDRD) Non-Af 42 L, BUN/Creatinine Ratio 21.9 H, Glucose 104, Calcium 9.2 06/17/22 23:10: Ethyl Alcohol < 3.0 Assessment & Plan Assessment/Plan (1) Adult failure to thrive: (2) Psychiatric illness: (3) Bilateral lower extremity edema: PLAN: Plan Adult failure to thrive PT and OT to work with patient. Case management consult for disposition. Psychiatry illness Review of labs shows better patient had normal vitamin B12 level on 05/14/2022. High TSH on 05/19/2022 was 38.6. TSH on 05/14/2022 was 47.9. Her TSH on 05/16/2019 was 130. Patient is supposed to be on levothyroxine. Reportedly she has not taken her medications. I will check TSH level. Levothyroxine will be prescribed with hope that patient will be amenable and take. Check ammonia level. Hypertension Blood pressure is not within goal Home blood pressure medicine will be resumed. Trend blood pressure and adjust blood pressure medications. Bilateral lower extremity edema Home diuretics will be resumed. Dae wrap ordered. CKD stage IIIa Stable Heart failure preserved ejection fraction Echocardiogram on 08/21/2014 showed EF of 70% and with transmitral diastolic flow velocities suggesting diastolic dysfunction. Stable. DVT prophylaxis Subcutaneous Lovenox ordered. Charges/Coding Visit Charges Inpatient E&M: 09649 Init Hosp L3
[2022-06-18 05:24] VITALS: BP 143/91; PULSE 105; RESP 18; TEMP 35.8; O2SAT 98
[2022-06-18 05:28] VITALS: BMI 44.9
[2022-06-18 07:04] LABS: Absolute Lymphocyte Count 1.21 X10^3/uL (0.83-4.51); Absolute Neutrophil Count 3.8 X10^3/uL (2.0-7.7); Basophil# 0.02 X10^3/uL; Basophil% 0.3 % (0-1); Eosinophil# 0.08 X10^3/uL; Eosinophils% 1.4 % (0-5); Hematocrit 42.2 % (37-47); Hemoglobin 12.7 g/dL (12.0-15.0); Lymphocyte # 1.21 X10^3/ul (0.83-4.51); Lymphocyte % 20.7 % (19-41); Mean Corp Hgb Conc 30.1 g/dL (32-36); Mean Corpuscular Hgb 27.7 pg (27.0-32.0); Mean Corpuscular Volume 92.1 fL (81-99); Mean Platelet Vol. 9.7 fl (6.2-12.0); NRBC Flagged by Analyzer 0 % (0-5); Neutrophil # 3.81 X10^3/uL (2.7-7.7); Neutrophil % 65.3 % (47-70); Platelet Count 269 K/mm3 (150-450); RBC Distribution Width CV 15.1 % (11.6-14.6); RBC Distribution Width SD 50.9 fl (35.1-43.9); Red Blood Count 4.58 M/mm3 (4.2-5.4); White Blood Count 5.8 K/mm3 (4.4-11.0)
[2022-06-18 07:29] LABS: Anion Gap 4 (5-15); BUN 27 mg/dL (7-18); BUN/Creat Ratio 20.8 RATIO (10-20); Calcium,Total 8.9 mg/dL (8.5-10.1); Chloride 110 mmol/L (98-107); EST Glomerular Filtration Rate 42 mL/min (>60); Est Glom Filt Rate - Afr Amer 50 mL/min (>60); Estimated Creatinine Clearance 31.89 ml/min; Glucose 108 mg/dL (74-106); Potassium 3.7 mmol/L (3.5-5.1); Sodium Level 142 mmol/L (136-145)
[2022-06-18 09:53] VITALS: BP 132/58; PULSE 66; RESP 16; TEMP 36.6; O2SAT 100
--- NOTE | 2022-06-18 09:56 | NURSING ---
Pt states she has not been taking any medications at home, med list updated accordingly.
--- NOTE | 2022-06-18 12:10 | PN.HOSP_ITS ---
Hospitalist Note Patient was seen and examined today, we are attempting to get approval for placement in a another nursing home facility for the patient for inpatient rehab services. Patient appears medically stable at this time, patient lost her IV site-I do not believe she needs an IV at this time.
[2022-06-18 13:38] VITALS: O2SAT 98
--- NOTE | 2022-06-18 15:51 | CHAPLAIN ---
Type of Pastoral Visit _x__ Initial Visit ___ Follow-up Visit ___ On-call Visit ___ General Patient Visit ___ Spiritual Assessment ___ Family Conference ___ Bereavement ___ Rapid Response ___ Code Blue ___ Other (describe below) Pastoral Care Referral From _x__ Patient ___ Family ___ Nurse ___ Physician ___ Histologic Technician ___ Sponge Diver ___ Other (describe below) Sacrament/Intervention _x__ Active listening ___ Anointing ___ Latter-Day ___ Bereavement ___ Communion _x__ Sheyla exploration ___ _x__ Life review _x__ Prayer ___ Reconciliation ___ Sacrament of Sick _x__ Supportive presence ___ Wedding ___ Other (describe below) Pastoral Comments patient is welcoming of spiritual care and identifies herself as a Hinduism Religious; pt is very talkative and goes into much detail about her life and family; this diesel tractor operator repeatedly asked about the pt herself and her needs and then the patient would continue talking about her family and many irrelevant details; pt is able to answer questions and to give many stories of life; pt often refers to God and her confidence in the work of God for healing and answering prayers; pt does welcome presence and prayer and asks for return visits;
--- NOTE | 2022-06-18 16:02 | CASEMGMT ---
Patient will need longterm facility at discharge per physician. SW met with patient and discussed d/c plan. SW provided a list of longterm facility?providers including quality and resource use data and consistent with patient?s preferred geographic region, medical needs, and insurance network were provided from the [employer] Guide. SW will check back with patient. Guerita DORANTES
--- NOTE | 2022-06-18 16:06 | CASEMGMT ---
MARCOS DUMONT in to complete FERNANDEZ form with patient. MARCOS DUMONT explained FERNA[employer]DEZ Form to patient, patient refused to sign FERNANDEZ form. Patient provided copy of FERNANDEZ form. Patient had no further questions or concerns at this time.
[2022-06-18 16:38] VITALS: BP 153/70; PULSE 88; RESP 16; TEMP 36.9; O2SAT 99
[2022-06-18 22:38] VITALS: BP 145/90; PULSE 91; RESP 16; TEMP 36.6; O2SAT 99
[2022-06-19 07:32] VITALS: O2SAT 98
[2022-06-19 10:13] VITALS: BP 135/102; PULSE 90; RESP 12; TEMP 35.6; O2SAT 100
--- NOTE | 2022-06-19 11:26 | CASEMGMT ---
SW went to patient's room to discuss her retirement facility choices. Patient was on the phone with someone. Patient was stating there were people in her room that absolutely refused to show me their ID . Patient said,There is a wrong way and a right way to do things and they better be done the right way or they will be in a lot of trouble. Patient then got off the phone. SW introduced self and role at [facility]. SW told patient that SW worked with her the last time patient was here at [facility]. Patient leaned in to look at SW's ID. SW showed patient ZENON's ID. Patient told SW,No, I never worked with you. I don't know who you are and I never worked with an Guerita. SW then told her that SW is here to talk with her about the retirement facility list. Patient began speaking by yelling. Patient was yelling that she has a paper that is missing and she is not going to talk about anything else until that form is found. Patient yelled, This form says I refused to sign it and I wrote in red ink why I refused to sign it and that paper is missing. Patient yelled,They are trying to get me to sign a paper for my insurance that is . My insurance is not . Trying to come in here and take my insurance away and my identity, no way. I worked for 19 years and the [employer] gave me this insurance. I don't trust you people. Patient did comment she trusts Dr Man, her hospitalist. ZENON told patient ZENON will make sure Dr Man comes to see her and left the room. Guerita DORANTES
[2022-06-19 11:40] VITALS: O2SAT 100
--- NOTE | 2022-06-19 16:29 | CASEMGMT ---
Patient told physician she wanted a correction that is in [place] beside a [facility] called [facility]. SW did some research and this is actually an assisted living facility. SW called patient's daughter Karen. SW introduced self. SW asked about patient's mental health. Per Karen patient has been diagnosed with Paranoid Schizophrenia. Patient has not seen a Psychiatrist or prescribed any Psych meds for 5-6 years. Patient has not had any psychiatric admissions in the last 2 years. SW asked Karen if she knows what correction patient is talking about that is next to [facility]. Karen did not know. Karen did tell SW that patient gets loud and sometimes acts like a spoiled teenager. SW asked if patient's inability to care for herself is related to her mental health or all physical inabilities. Karen said it is physical. For instance, patient cannot get in and out of the tub and she cannot stand long enough to cook. Karen lives in [place] so if SW could find a place in [place] that may be good for patient. SW will talk with patient about facilities in [place]. Guerita DORANTES
--- NOTE | 2022-06-19 18:52 | PN.HOSP_ITS ---
Reason for Visit Reason for Visit: Diagnoses Mental disorder, not otherwise specified (06/18/22) Localized edema (06/18/22) Adult failure to thrive (06/18/22) Subjective Subjective Patient was seen and examined today, she acted agitated at times and was confabulating today. coordinator of rehabilitation services did talk with the patient's daughter who stated that she has a history of paranoid schizophrenia. We are attempting to get her certified to get her into a shelter, this will not likely happen until early next week. Objective Data Objective Data Vital Signs: Vital Signs Temp Pulse Resp BP Pulse Ox O2 Del Method 96.1 F L 90 12 135/102 H 100 Room Air 06/19/22 10:13 06/19/22 10:13 06/19/22 10:13 06/19/22 10:13 06/19/22 11:40 06/19/22 11:40 Oxygen Delivery Method Room Air Weight: 130.1 kg Body Mass Index (BMI) 44.9 Intake & Output: Intake and Output for Last 24 Hours 06/17/22 06/18/22 06/19/22 23:59 23:59 23:59 Intake Total 780 / 780 1280 / 1280 Balance 780 / 780 1280 / 1280 Lab / Micro Data Result Diagrams: 06/18/22 06:55 06/18/22 06:55 Physical Exam Const alert, oriented x3 and no apparent distress Constitutional Narrative: Patient exhibits some mild confusion, she is able answer simple questions appropriately, patient is morbidly obese General Appearance: cooperative, well kempt and well developed Orientation / Consciousness: awake, oriented to person, oriented to place and oriented to time HEENT normocephalic and moist oral mucous membranes Eyes PERRL, EOMs intact bilaterally and conjunctivae normal Neck supple, no JVD, thyroid normal and no carotid bruits General: trachea midline Resp normal respiratory effort, no retractions, no use of accessory muscles and clear to auscultation bilaterally Auscultation: Negative for rales, rhonchi or wheezes Cardio regular rate, regular rhythm, no murmurs, no rub and no gallops GI normal to inspection, nondistended, normoactive bowel sounds, soft to palpation, non-tender and non-distended Extremity Extremity Narrative: Generalized lower leg edema is noted bilaterally Skin no rashes or lesions noted General Skin Exam: no breakdown Neuro oriented x3, CN's II-XII intact bilaterally, moves all extremities, no focal motor deficits and no sensory deficits noted Sensorium / Orientation: awake and alert Speech: speech normal Psych affect normal Assessment & Plan Assessment/Plan (1) Debility: PLAN: Plan 1. Generalized debility-patient will continue to see PT and OT, she will need placement in an extended care facility. #2 essential hypertension-patient refuses to take any medications at this time due to her psychiatric illness #3 chronic bilateral lower leg edema-complicates care, medical course, recovery, and prognosis #4 chronic kidney disease stage IIIa-complicates care, medical course, recovery, and prognosis #5 paranoid schizophrenia by history-this is according to the patient's daughter, complicates care, medical course, recovery, and prognosis #6 morbid obesity-complicates care, medical course, recovery, and prognosis Total clinical time spent by myself addressing the patient's medical issues, reviewing all of her data, and collaborating with patient's care team: 35 minutes Charges/Coding Visit Charges Inpatient E&M: 44514 Subs Hosp L2
[2022-06-19 22:00] VITALS: O2SAT 98
[2022-06-20 02:45] VITALS: O2SAT 98
[2022-06-20 05:25] VITALS: BP 142/86; PULSE 85; RESP 15; TEMP 36.6; O2SAT 98
[2022-06-20 06:53] VITALS: O2SAT 96
[2022-06-20 08:16] VITALS: BP 149/74; PULSE 82; RESP 15; TEMP 36.6; O2SAT 99
--- NOTE | 2022-06-20 08:59 | CASEMGMT ---
SW went to patient's room to let patient know that SW found the facility next to [facility] in [place]. However, it is only assisted living not a retirement facility for rehab. Patient said that there is a halfway because people from the hinduism went there for rehab. Patient told SW that there are churches across the road so SW must have called one of them. SW asked patient if she would like SW to print a list of facilities in [place], [place] so she can be close to her daughter. Patient started telling SW about the hinduism, the tanning solution maker, and he gave her a healing cloth. Patient asked SW if SW was a Jain and if not there is not point in talking with SW about it. However, patient continued to explain a healing cloth. Patient said she had one in her bra and when she went to the halfway it came up missing. Patient said, Someone new about healing cloths and they wanted the healing. Patient then started to tell SW that SW should be saved and there is a rapture. SW asked patient if we could get back to discussing nursing homes. Patient said she was going to call the tanning solution maker at the hinduism to see the name of the halfway. SW told her SW will check back with her. SW printed a list of nursing homes that are near the [facility] in [place] and will give this to patient. Guerita DORANTES
--- NOTE | 2022-06-20 10:00 | CASEMGMT ---
SW spoke with patient again and she still has not decided on a facility. Patient picked up her phone to call her mechanical engineering officer. However, she started reading aloud to SW the mission of the synagogue. ZENON let patient know SW will check back with her to find out which SNF. Patient continued to read information about the synagogue aloud. Guerita DORANTES
--- NOTE | 2022-06-20 11:28 | CASEMGMT ---
Addendum entered by Guerita Duran 06/20/22 12:00: SW also called [facility] and let her know SW sent a referral via [facility]. They will review it and get back to ZENON. Guerita DORANTES Original Note: Physician said patient wants [facility]. SW sent a referral to [facility] via [facility]. Guerita DORANTES
--- NOTE | 2022-06-20 15:40 | CASEMGMT ---
SW received a response from [facility] that they are not comfortable taking patient with everything that happened when she was at [facility]. SW went to patient's room and let her know. SW asked patient if she had another choice. Patient said she was going to call her global mobility specialist. Patient picked up her phone and called her mormonism. Patient asked the lady on the phone about the facility called [facility]. The lady knew of the facility, but not anything else. She suggested patient call the facility. Patient then hung up. SW told patient that SW already called the facility and they are only assisted living. SW asked patient if she would like SW to get her the number and she said she will get it. SW spoke with physician and explained situation. Physician was going to call patient's daughter Karen and will get back to . Physician spoke with patient's granddaughter Annabel. Annabel and Karen have been discussing psych placement for patient as they feel if may be necessary. SW will contact crisis to re-evaluate patient. Guerita DORANTES
--- NOTE | 2022-06-20 15:53 | PCM.PN.HOSP ---
Reason for Visit Reason for Visit: Diagnoses Mental disorder, not otherwise specified (06/18/22) Other malaise (06/18/22) Localized edema (06/18/22) Adult failure to thrive (06/18/22) Subjective Subjective Patient was seen and examined today, she got upset with executive secretary social welfare and physical therapy today, this has to do with her methodist delusions. She was turned down for admission to [facility]. Objective Data Objective Data Vital Signs: Vital Signs Temp Pulse Resp BP Pulse Ox O2 Del Method 97.9 F 82 15 149/74 H 99 Room Air 06/20/22 08:16 06/20/22 08:16 06/20/22 08:16 06/20/22 08:16 06/20/22 08:16 06/20/22 08:16 Oxygen Delivery Method Room Air Weight: 130.1 kg Body Mass Index (BMI) 44.9 Intake & Output: Intake and Output for Last 24 Hours 06/18/22 06/19/22 06/20/22 23:59 23:59 23:59 Intake Total 780 / 780 1280 / 1280 480 / 480 Balance 780 / 780 1280 / 1280 480 / 480 Lab / Micro Data Result Diagrams: 06/18/22 06:55 06/18/22 06:55 Physical Exam Narrative alert, oriented x3 and no apparent distress Constitutional Narrative: Patient exhibits some mild confusion, she is able answer simple questions appropriately, patient is morbidly obese General Appearance: cooperative, well kempt and well developed Orientation / Consciousness: awake, oriented to person, oriented to place HEENT normocephalic and moist oral mucous membranes Eyes PERRL, EOMs intact bilaterally and conjunctivae normal Neck supple, no JVD, thyroid normal and no carotid bruits General: trachea midline Resp normal respiratory effort, no retractions, no use of accessory muscles and clear to auscultation bilaterally Auscultation: Negative for rales, rhonchi or wheezes Cardio regular rate, regular rhythm, no murmurs, no rub and no gallops GI normal to inspection, nondistended, normoactive bowel sounds, soft to palpation, non-tender and non-distended Extremity Extremity Narrative: Generalized lower leg edema is noted bilaterally Skin no rashes or lesions noted General Skin Exam: no breakdown Neuro oriented x3, CN's II-XII intact bilaterally, moves all extremities, no focal motor deficits and no sensory deficits noted Sensorium / Orientation: awake and alert Speech: speech normal Psych Patient exhibits delusional thinking at times Assessment & Plan Assessment/Plan (1) Debility: PLAN: Plan 1. Generalized debility-patient will continue to see PT and OT, she will need placement in an extended care facility. #2 essential hypertension-patient refuses to take any medications at this time due to her psychiatric illness #3 chronic bilateral lower leg edema-complicates care, medical course, recovery, and prognosis #4 chronic kidney disease stage IIIa-complicates care, medical course, recovery, and prognosis #5 paranoid schizophrenia by history-this is according to the patient's daughter, complicates care, medical course, recovery, and prognosis #6 morbid obesity-complicates care, medical course, recovery, and prognosis Patient is currently noncompliant with taking any medications, I had a brief conversation with the patient's granddaughter by phone today, she states that the patient does not have a POA for healthcare matters, the daughter is the financial POA. The granddaughter told me the patient came into the ER approximately a month ago due to chronic swelling of her legs and was admitted to the hospital here and then went to [facility]. She had been living in an apartment but had not been taking care of her self, family membersTo bathe her and do grooming. Were coming into her apartment to bathe her and clean up the apartment but the patient would just sit in the apartment and not move out of a chair. The granddaughter does not think the daughter would have a problem with a psych eval for the patient, I asked the granddaughter to have the daughter call the floor and give permission for us to do a psych eval on the patient, I think this is the best way to proceed because I think we are going to have problems getting her into a skilled facility due to her psych issues. Total clinical time spent by myself addressing the patient's medical issues, reviewing all of her data, and collaborating with patient's care team: 50 minutes Charges/Coding Visit Charges Inpatient E&M: 37765 [facility] Hosp L3
--- NOTE | 2022-06-20 17:12 | CASEMGMT ---
ZENON called crisis and left a message requesting a return call. Guerita Duran DRY MILL OPERATOR JAYNA
--- NOTE | 2022-06-20 18:11 | CASEMGMT ---
ZENON spoke with Chayito from crisis and told about ZENON's interactions with patient and why it is believed patient needs psych placement. April will evaluate patient. Guerita Duran ORDNANCE OFFICER JAYNA
[2022-06-20 21:17] VITALS: BP 150/94; PULSE 80; RESP 18; TEMP 36.9; O2SAT 98
--- NOTE | 2022-06-20 22:14 | NURSING ---
This RN spoke with Chayito Valencia. Chayito states pt meets the criteria for placement and that referral will be started but might take a while d/t pt's high medical acuity. RN thanked Chayito for giving us update.
--- NOTE | 2022-06-21 10:23 | DS.PCM_ITS ---
Providers Date of Admission: 06/18/22 Date of Discharge: 06/21/22 Primary Care Physician: Dr. Flores Boles, Reason For Visit: ADULT FAILURE TO THRIVE Diagnosis Discharge Diagnosis (1) Debility: Status: Acute Code(s): R53.81 - Other malaise Plan 1. Generalized debility-patient will continue to see PT and OT, she will need placement in an extended care facility. #2 essential hypertension-patient refuses to take any medications at this time due to her psychiatric illness #3 chronic bilateral lower leg edema-complicates care, medical course, recovery, and prognosis #4 chronic kidney disease stage IIIa-complicates care, medical course, recovery, and prognosis #5 paranoid schizophrenia by history-this is according to the patient's daughter, complicates care, medical course, recovery, and prognosis #6 morbid obesity-complicates care, medical course, recovery, and prognosis Patient is currently noncompliant with taking any medications, I had a brief conversation with the patient's granddaughter by phone today, she states that the patient does not have a POA for healthcare matters, the daughter is the financial POA. The granddaughter told me the patient came into the ER [facility] a month ago due to chronic swelling of her legs and was admitted to the hospital here and then went to [facility]. She had been living in an apartment but had not been taking care of her self, family membersTo bathe her and do grooming. Were coming into her apartment to bathe her and clean up the apartment but the patient would just sit in the apartment and not move out of a chair. The granddaughter does not think the daughter would have a problem with a psych eval for the patient, I asked the granddaughter to have the daughter call the floor and give permission for us to do a psych eval on the patient, I think this is the best way to proceed because I think we are going to have problems getting her into a skilled facility due to her psych issues. Total clinical time spent by myself addressing the patient's medical issues, reviewing all of her data, and collaborating with patient's care team: 50 minutes Medications at Discharge Home Medications NK 06/18/22 Hospital Course Operations None Procedures None Summary of Care Provided Minutes Spent on Discharge: 31 Hospital Course: This 81-year-old white female was seen in the emergency room at [facility], she had been recently discharged from a skilled care shelter several days prior after calling the deliverer pharmacy on the shelter staff, she was unable to take care of her self at home and was brought to the emergency room for evaluation. Patient has a history of paranoid schizophrenia and will not take any medications, she refuses care continuously. She was delusional talking about God and prayer. Labs were remarkable for an elevated creatinine at 1.2 and an elevated BUN at 28, patient's white blood cell count and hemoglobin were unremarkable. Patient is status on PCU, she was seen by PT and OT but refused to participate in physical therapy-her demeanor was paranoid throughout her entire hospital stay. Patient refused to take any medication. We attempted to get her placed into a snf facility but we had refusals based probably on her past psych history and behavior. We finally had to have crisis see her for evaluation for transfer to a inpatient psych facility and this was accomplished. On 06/21/2022, patient was seen and examined: On examination she is delusional with some confusion, she does not appear to be in any distress. Vital signs as documented. Skin warm and dry and without overt rashes. Neck without JVD, t hyroid appears normal, trachea is midline, neck is supple. Lungs clear, normal air movement was noted. Heart exam notable for regular rhythm, normal sounds and absence of murmurs, rubs or gallops. Abdomen unremarkable and without evidence of organomegaly, masses, or abdominal aortic enlargement, bowel sounds are present in all 4 quadrants, no abdominal tenderness was noted. Extremities nonedematous, no cyanosis was noted, no clubbing was noted. Neuro: Cranial nerves II through XII are grossly intact, no focal motor deficits were noted, sensation to light touch and pinprick is intact, motor exam 5/5 throughout. Psych: Patient is alert, she is oriented as to person and place, she is delusion al and shows evidence of confusion. On 06/21/2022, patient was seen and examined and felt to be stable for discharge to an inpatient psychiatric facility. Weight / BMI Weight Weight: 130.1 kg Body Mass Index (BMI) 44.9 ABG / Lab / Microbiology Data Result Diagrams: 06/18/22 06:55 06/18/22 06:55 Meaningful Use Info Meaningful Use Diagnoses (Choose all that apply): None applicable Discharge Plan Admission Admit Date/Time: 06/18/22 03:23 Attending Provider: Walter Man Primary Care Provider: Folres Boles Consulting Providers: Nikolas Ballard Discharge Orders/Prescriptions Prescriptions: No Action NK Referrals / Follow Up: Flores Boles DO [Primary Care Provider] - 5-7 Days Disposition Discharge Orders: Discharge Patient (Routine); Ordered 06/21/22 Ordered By: Dr. Walter Man Charges/Coding Visit Charges Inpatient E&M: [id number] Disch Hosp >30min
[2022-06-21 10:54] VITALS: BP 136/90; PULSE 100; RESP 16; TEMP 36.7; O2SAT 99
[2022-06-21 11:18] VITALS: BP 136/90; PULSE 100; RESP 16; TEMP 36.7; O2SAT 99
--- NOTE | 2022-06-21 11:55 | CASEMGMT ---
Social Work Note SW contacted [facility] to inquire about progress towards psych placement for patient. Chayito with [facility] returned SW call with update that patient was accepted to [facility] and unit staff are aware. Plan: Abiel ALMENDAREZ, JAYNA
--- NOTE | 2022-06-21 12:51 | NURSING ---
This RN called report to MARCOS Maravilla @ [facility] in [facility].
[2022-06-21] MEDS: Haloperidol Lactate 5 MG/ML Vial 4 MG IM (20:14)
--- NOTE | 2022-06-21 20:16 | NURSING ---
This nursing supervisor travel information center called to the nursing unit due to pt becoming verbally aggressive and refusing to get onto the ems cart for transfer. HRO present. Pt yelling and shaking her fists at staff. Unable to de-escalate with verbal re-assurance and re-direction amd emotional support. Dr dominguez notified. Orders recieved. Daughter notified by charge nurse of situation and medication. Haldol 4 mg IM given with assistance of HRO, 2 ems staff, 2 RN's and one joy operator. pt transferred to ems cart and discharged.
== END 2022-06-21 20:20 ==
LOC: ED 06-18 04:08 → PCU 06-18 04:30
PROVIDERS: Admitting Provider Hospitalist; Emergency Provider Emergency Medicine; PCP Internal Medicine; Visit Provider Internal Medicine
DX: R53.81 Other malaise (principal); F20.0 Paranoid schizophrenia; I50.32 Chronic diastolic (congestive) heart failure; I13.0 Hypertensive heart and chronic kidney disease with heart failure and stage 1 through stage 4 chronic kidney disease, or unspecified chronic kidney disease; I48.91 Unspecified atrial fibrillation; E66.01 Morbid (severe) obesity due to excess calories; Z68.42 Body mass index [BMI] 45.0-49.9, adult; N18.31 Chronic kidney disease, stage 3a; R62.7 Adult failure to thrive; R41.0 Disorientation, unspecified; Z87.891 Personal history of nicotine dependence; E89.0 Postprocedural hypothyroidism; Z79.01 Long term (current) use of anticoagulants; Z79.890 Hormone replacement therapy; Z79.899 Other long term (current) drug therapy; J45.909 Unspecified asthma, uncomplicated; R60.0 Localized edema; D64.9 Anemia, unspecified; E78.5 Hyperlipidemia, unspecified; E87.6 Hypokalemia
CPT/HCPCS: 36415; 80048; 80053; 80307; 82077; 82140; 84443; 85025; 85027; 87426; 96372; 97110; 97162; 97166; 97530; 97535; 97802; 99221; 99284; G0378

== ENCOUNTER → 2022-06-17 | Outpatient (REF) | payer MEDICARE, OTHER, SELFPAY ==
[2022-06-17 08:37] LABS: Hematocrit 40.5 % (37-47); Hemoglobin 12.2 g/dL (12.0-15.0); Mean Corp Hgb Conc 30.1 g/dL (32-36); Mean Corpuscular Hgb 27.9 pg (27.0-32.0); Mean Corpuscular Volume 92.7 fL (81-99); Mean Platelet Vol. 10.2 fl (6.2-12.0); Platelet Count 283 K/mm3 (150-450); RBC Distribution Width SD 51.6 fl (35.1-43.9); Red Blood Count 4.37 M/mm3 (4.2-5.4); White Blood Count 5.1 K/mm3 (4.4-11.0)
[2022-06-17 09:01] LABS: ALB/GLOB Ratio 0.8 RATIO (0.9-2.4); AST(SGOT) 20 U/L (15-37); Alanine Aminotransfer ALT/SGPT 19 U/L (13-56); Alkaline Phosphatase 69 U/L (45-117); Anion Gap 5 (5-15); BUN 28 mg/dL (7-18); BUN/Creat Ratio 23.3 RATIO (10-20); Calcium,Total 8.7 mg/dL (8.5-10.1); Chloride 109 mmol/L (98-107); EST Glomerular Filtration Rate 46 mL/min (>60); Est Glom Filt Rate - Afr Amer 55 mL/min (>60); Globulin 3.7 g/dL (2.2-4.2); Glucose 85 mg/dL (74-106); Potassium 4.1 mmol/L (3.5-5.1); Protein, Total 6.7 g/dL (6.4-8.2); Sodium Level 139 mmol/L (136-145)
== END ==
LOC: OLS.SW 05:00
PROVIDERS: PCP Internal Medicine; Visit Provider Family Medicine
DX: D64.9 Anemia, unspecified (principal); E78.5 Hyperlipidemia, unspecified; I50.32 Chronic diastolic (congestive) heart failure; E87.6 Hypokalemia
CPT/HCPCS: 36415; 80053; 85027